=== PATIENT | male | born 2005 | race Caucasian/White ===

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

== ENCOUNTER 2024-03-12 14:03 | Inpatient (IN) | payer MEDICAID, OTHER ==
--- NOTE | 2024-03-12 15:45 | ED ---
Psych HPI - General Chief Complaint: Psychiatric Symptoms Stated Complaint: Mental Health-Cutting Time Seen by Provider: 03/12/24 15:00 Source: patient, family Mode of arrival: ambulatory - History of Present Illness Initial Comments: Patient is a 18-year-old male with history of mood disorder who presents with complaint that his depression has been flaring and he feels suicidal. He used a kitchen knife to inflict 12 very superficial lacerations/abrasions to the left forearm. MD Complaint: suicidal ideation, feels depressed -: days(s) Associated Psychiatric Symptoms: depression, suicidal ideation History of same: Yes Quality: constant Improves With: none Worsens With: none - Related Data Home Medications Medication Instructions Recorded Confirmed metFORMIN HCL ER [Glucophage XR] 500 mg PO DAILY 03/12/24 03/12/24 Previous Rx's Medication Instructions Recorded [place] Carbonate 300 mg PO DAILY 30 Days cap 07/04/22 [place] Carbon[place] 900 mg PO HS 30 Days cap 07/04/22 Melatonin 5 mg PO HS PRN 30 Days tab 07/04/22 Allergies Allergy/AdvReac Type Severity Reaction Status Date / Time No Known Allergies Allergy Verified 03/12/24 17:13 Review of Systems ROS Statement: Those systems with pertinent positive or pertinent negative responses have been documented in the HPI. ROS Other: All systems not noted in ROS Statement are negative. Constitutional: Denies: fever Respiratory: Denies: cough, dyspnea Cardiovascular: Denies: chest pain, palpitations, syncope Gastrointestinal: Denies: abdominal pain, vomiting, diarrhea Genitourinary: Denies: dysuria, hematuria Musculoskeletal: Denies: back pain Skin: Reports: lesions Neurological: Denies: headache, weakness Psychiatric: Reports: depression, suicidal thoughts. Denies: auditory hallucinations, visual hallucinations, homicidal thoughts Past Medical History Past Medical History: No Reported History History of Any Multi-Drug Resistant Organisms: None Reported Past Surgical History: No Surgical Hx Reported Past Anesthesia/Blood Transfusion Reactions: No Reported Reaction Past Psychological History: ADD/ADHD, Depression Smoking Status: Current some day smoker, Vaper Past Alcohol Use History: Daily, Heavy Past Drug Use History: Prescription Drug Abuse - Past Family History Father Family Medical History: Hypertension General Exam Limitations: no limitations General appearance: alert, in no apparent distress Head exam: Present: atraumatic, normocephalic Eye exam: Present: normal appearance Respiratory exam: Present: normal lung sounds bilaterally. Absent: respiratory distress, wheezes, rales, rhonchi, stridor, accessory muscle use Cardiovascular Exam: Present: regular rate, normal rhythm, normal heart sounds. Absent: systolic murmur, diastolic murmur, rubs, gallop GI/Abdominal exam: Present: soft. Absent: distended, tenderness, guarding, rebound, rigid, mass Extremities exam: Present: other (Multiple abrasions to left forearm) Back exam: Present: normal inspection. Absent: CVA tenderness (R), CVA tenderness (L) Neurological exam: Present: alert. Absent: motor sensory deficit Skin exam: Present: warm, dry, intact, normal color. Absent: rash Course Vital Signs 03/12/24 14:13 Temperature 97.9 F Pulse Rate 59 L Respiratory 18 Rate Blood Pressure 135/69 O2 Sat by Pulse 100 Oximetry Medical Decision Making - Medical Decision Making Was pt. sent in by a medical professional or institution (, PA, STOCK HANDLER, urgent care, hospital, or senior care...) When possible be specific @ -[No] Did you speak to anyone other than the patient for history (EMS, parent, family, police, friend...)? What history was obtained from this source @ -[No] Did you review nursing and triage notes (agree or disagree)? Why? @ -[I reviewed and agree with nursing and triage notes] Were old charts reviewed (outside hosp., previous admission, EMS record, old EKG, old radiological studies, urgent care reports/EKG's, senior care records)? Report findings @ -[No old charts were reviewed] Differential Diagnosis (chest pain, altered mental status, abdominal pain women, abdominal pain men, vaginal bleeding, weakness, fever, dyspnea, syncope, head ache, dizziness, GI bleed, back pain, seizure, CVA, palpatations, mental health, musculoskeletal)? @ -Differential Mental Health Depression, anxiety, bipolar, psychosis, schizophrenia, borderline personality, situational depression, adjustment disorder, behavioral disorder, brain tumor, malingering, substance abuse, encephalopathy, medication reaction, dementia, hypothyroidism, degenerative neurologic disorder, lupus.... This is not meant to be all-inclusive list EKG interpreted by me (3pts min.). @ -[As above] X-rays interpreted by me (1pt min.). @ -[None done] CT interpreted by me (1pt min.). @ -[None done] U/S interpreted by me (1pt. min.). @ -[None done] What testing was considered but not performed or refused? (CT, X-rays, U/S, labs)? Why? @ -[None] What meds were considered but not given or refused? Why? @ -[None] Did you discuss the management of the patient with other professionals (professionals i.e. , PA, STOCK HANDLER, lab, RT, psych nurse, social work supervisor, adolescent coordinator, teacher, v/stol landing signal officer, caser shoe parts)? Give summary @ -[Case discussed with EPS personnel and their treatment recommendation is incorporated Was smoking cessation discussed for >3mins.? @ -[No] Was critical care preformed (if so, how long)? @ -[No] Were there social determinants of health that impacted care today? How? (Homelessness, low income, unemployed, alcoholism, drug addiction, transportation, low edu. Level, literacy, decrease access to med. care, alf, rehab)? @ -[No] Was there de-escalation of care discussed even if they declined (Discuss DNR or withdrawal of care, Hospice)? DNR status @ -[No] What co-morbidities impacted this encounter? (DM, HTN, Smoking, COPD, CAD, Cancer, CVA, ARF, Chemo, Hep., AIDS, mental health diagnosis, sleep apnea, morbid obesity)? @ -[None] Was patient admitted / discharged? Hospital course, mention meds given and route, prescriptions, significant lab abnormalities, going to OR and other pertinent info. @ -[Patient is seen and evaluated. He is cleared for EPS evaluation. They saw the patient and after discussion with psychiatrist will admit Undiagnosed new problem with uncertain prognosis? @ -[No] Drug Therapy requiring intensive monitoring for toxicity (Heparin, Nitro, Insulin, Cardizem)? @ -[No] Were any procedures done? @ -[No] Diagnosis/symptom? @ -Acute suicidal ideation Acute on chronic mood disorder Acute, or Chronic, or Acute on Chronic? @ -[default] Uncomplicated (without systemic symptoms) or Complicated (systemic symptoms)? @ -[uncomplicated Side effects of treatment? @ -[No] Exacerbation, Progression, or Severe Exacerbation? @ -[No] Poses a threat to life or bodily function? How? (Chest pain, USA, IA, pneumonia, PE, COPD, DKA, ARF, appy, cholecystitis, CVA, Diverticulitis, Homicidal, Suicidal, threat to staff... and all critical care pts) @ -[With suicidal ideation there is risk of progression to suicide attempt/completion - Lab Data Lab Results 03/12/24 03/12/24 Range/Units 16:35 16:53 Urine Opiates Screen Not Detected (NotDetected) Ur Oxycodone Screen Not Detected (NotDetected) Urine Methadone Screen Not Detected (NotDetected) Ur Barbiturates Screen Not Detected (NotDetected) U Tricyclic Antidepress Not Detected (NotDetected) Ur Phencyclidine Scrn Not Detected (NotDetected) Ur Amphetamines Screen Not Detected (NotDetected) U Methamphetamines Scrn Not Detected (NotDetected) U Benzodiazepines Scrn Not Detected (NotDetected) Urine Cocaine Screen Not Detected (NotDetected) U Marijuana (THC) Screen Not Detected (NotDetected) SARS-CoV-2 (PCR) Not Detected (Not Detectd) - EKG Data -: EKG Interpreted by Pr EKG shows normal: sinus rhythm, axis (Borderline right axis), intervals (NC interval 138 ms, normal QTc 369 ms, normal. QRS duration 120 ms, borderline.), QRS complexes (Intraventricular conduction delay), ST-T waves (Normal) Rate: bradycardia (Rate 49 bpm) Disposition Clinical Impression: Suicidal ideation, Mood disorder Disposition: ADMITTED IP TO THIS [facility] Condition: Fair Is patient prescribed a controlled substance at d/c from ED?: No Referrals: Tre Anderson MD [Primary Care Provider] - 1-2 days
[2024-03-12 17:25] LABS: Amphetamine Screen,Urine Not Detected (NotDetected); Barbiturate Screen,Urine Not Detected (NotDetected); Benzodiazepines Screen,Urine Not Detected (NotDetected); Cocaine Screen,Urine Not Detected (NotDetected); Methadone Screen, Urine Not Detected (NotDetected); Opiate Screen,Urine Not Detected (NotDetected); Oxycodone Screen, Urine Not Detected (NotDetected); Phencyclidine Screen,Urine Not Detected (NotDetected); Tricyclic Antidepressant,Urine Not Detected (NotDetected); Urn Cannabinoid Scrn Not Detected (NotDetected)
[2024-03-12 19:02] LABS: Basophils % (A) 0 %; Eosinophils # (A) 0.1 k/uL (0-0.7); Eosinophils % (A) 1 %; Lymphocytes # (A) 2.2 k/uL (1.0-4.8); Lymphocytes % (A) 24 %; MCH 28.9 pg (25.0-35.0); MCHC 35.6 g/dL (31.0-37.0); MCV 81.1 fL (80.0-100.0); Mean Platelet Volume 7.7; Monocytes # (A) 0.8 k/uL (0-1.0); Monocytes % (A) 8 %; Neutrophils # (A) 6.1 k/uL (1.3-7.7); Neutrophils % (A) 65 %; Platelet Count 260 k/uL (150-450); RBC 5.54 m/uL (4.30-5.90); WBC 9.4 k/uL (4.0-11.0)
[2024-03-12 19:43] LABS: African American GFR (CKD) >90 (>60 ml/min/1.73 sqM); Anion Gap 9 mmol/L; Blood Urea Nitrogen 9 mg/dL (9-20); Calcium 9.8 mg/dL (8.4-10.2); Carbon Dioxide 26 mmol/L (22-30); Chloride 105 mmol/L (98-107); Glucose 64 mg/dL (74-99); Lithium <0.2 mmol/L; Non-African American GFR(CKD) >90 (>60 ml/min/1.73 sqM); Potassium 4.4 mmol/L (3.5-5.1); Sodium 140 mmol/L (137-145)
[2024-03-12] MEDS ORDERED: MAGNESIUM HYDROXIDE 2,400 MG/30 ML CUP PO PRN (21:22)
[2024-03-12] MEDS ORDERED: ACETAMINOPHEN TAB 325 MG TAB PO PRN (21:22)
[2024-03-12] MEDS ORDERED: LORazepam 2 MG/ML INJ IM PRN (21:22)
[2024-03-12 21:54] LABS: Appearance,Urine Clear (Clear); Bilirubin,Urine Negative (Negative); Blood,Urine Negative (Negative); Color,Urine Yellow; Glucose,Urine (UA) Negative (Negative); Ketones,Urine Negative (Negative); Leukocyte Esterase,Urine Negative (Negative); Nitrite,Urine Negative (Negative); Protein,Urine Trace (Negative)
[2024-03-12] MEDS: IBUPROFEN 600 MG TAB PO PRN (22:57)
[2024-03-12] MEDS: MELATONIN 5 MG TABLET PO PRN (22:57)
[2024-03-12] MEDS: traZODone HCL 50 MG TAB PO PRN (22:57)
--- NOTE | 2024-03-13 04:15 | P.CONS ---
History of Present Illness - Reason for Consult Consult date: 03/13/24 - History of Present Illness The patient is a 18-year-old male with a PMH of ADHD and depression as well as tobacco and marijuana abuse who presented to the emergency room with complaints of depression and suicidal ideation. The patient was admitted to the mental health unit where he was seen and evaluated. The patient reports that he has been suffering with several poor social situations and that he had been having t houghts of self-harm. He denied any physical complaints at the time of interview. Denied experiencing chest discomfort, shortness breath, fever, chills, cough, nausea, vomiting, abdominal pain, diarrhea. Does report recreational marijuana and tobacco use along with occasional social alcohol use. Denies any additional illicit substance use Review of systems: Pertinent positives and negatives as discussed in HPI, a complete review of systems was performed and all other systems are negative. Physical examination: General: non toxic, no distress, appears at stated age, normal weight Derm: no unusual rashes/lesions, no unusual ecchymoses, warm, dry Head: atraumatic, normocephalic, symmetric Eyes: EOMI, no lid lag, anicteric sclera ENT: Nose and ears atraumatic, no thrush, no pharyngeal erythema Neck: trachea midline, supple Mouth: no lip lesion, mucus membranes moist Cardiovascular: S1S2 reg, no murmur, no edema Lungs: CTA bilateral, no rhonchi, no rales , no accessory muscle use Abdominal: soft, nontender to palpation, no guarding Ext: no gross muscle atrophy, no contractures, Neuro: No gross focal neuro deficits noted Psych: Alert, oriented, appropriate affect Assessment: Marijuana abuse Depression with suicidal ideation Imaging: None performed Data Review: Reviewed with WBC count 9.4, hemoglobin 16, sodium 140, potassium 4.4, glucose 64, with urine toxicology negative Plan: Advised on the importance of cessation Defer management of depression and suicidal ideation to the primary psychiatry service Thank you for allowing us to participate in the care of this patient. We will follow peripherally. Do not hesitate to contact us with questions. Someone can be reached from the [facility] hospitalist group at all hours of the day at [phone]. Past Medical History Past Medical History: No Reported History History of Any Multi-Drug Resistant Organisms: None Reported Past Surgical History: No Surgical Hx Reported Past Anesthesia/Blood Transfusion Reactions: No Reported Reaction Past Psychological History: ADD/ADHD, Bipolar, Depression, Schizoaffective Disorder Smoking Status: Current some day smoker, Vaper Past Alcohol Use History: Daily, Heavy Past Drug Use History: Prescription Drug Abuse - Past Family History Father Family Medical History: Hypertension Medications and Allergies Home Medications Medication Instructions Recorded Confirmed Type March Arb Carbonate 300 mg PO DAILY 30 Days cap 07/04/22 03/12/24 Rx March Arb Carbonate 900 mg PO HS 30 Days cap 07/04/22 03/12/24 Rx Melatonin 5 mg PO HS PRN 30 Days tab 07/04/22 03/12/24 Rx metFORMIN HCL ER [Glucophage XR] 500 mg PO DAILY 03/12/24 03/12/24 History Allergies Allergy/AdvReac Type Severity Reaction Status Date / Time No Known Allergies Allergy Verified 03/12/24 21:48 Physical Exam Vitals: Vital Signs Temp Pulse Pulse Resp BP BP Pulse Ox 03/13/24 02:55 97.6 F 80 16 107/63 96 03/12/24 22:24 97.4 F L 56 L 14 129/67 98 03/12/24 21:19 60 18 128/70 99 03/12/24 14:13 97.9 F 59 L 18 135/69 100 Intake and Output 03/12/24 03/12/24 03/13/24 14:59 22:59 06:59 Other: Weight 84.822 kg 78.557 kg Results CBC & Chem 7: 03/12/24 18:52 03/12/24 18:52 Labs: Abnormal Lab Results - Last 24 Hours (Table) 03/12/24 03/12/24 Range/Units 16:35 18:52 Glucose 64 L (74-99) mg/dL Urine Protein Trace H (Negative)
[2024-03-13] MEDS ORDERED: MAG HYDROX/AL HYDROX/SIMETH 355 ML BOTTLE PO PRN (08:00)
[2024-03-13] MEDS: NICOTINE 14MG/24HR PATCH TRANSDERM SCH (09:16)
[2024-03-13] MEDS: metFORMIN 500 MG TAB PO SCH (09:17)
[2024-03-13 09:37] LABS: ALT 17 U/L (4-49); AST 21 U/L (17-59); Albumin 4.5 g/dL (3.5-5.0); Alkaline Phosphatase 87 U/L (38-126); Bilirubin, Delta 0.2 mg/dL (0.0-0.2); Bilirubin,Unconjugated 0.6 mg/dL (0.0-1.1); Total Bilirubin 0.8 mg/dL (0.2-1.3); Total Protein 7.5 g/dL (6.3-8.2)
[2024-03-13 12:47] LABS: Chol/HDL Ratio 2.88 Ratio; LDL Cholesterol,Calculated 52.6 mg/dL (0.0-131.0); VLDL Calculation 17.26 mg/dL (5.00-40.00)
[2024-03-13] MEDS: LORazepam 1 MG TAB PO PRN (16:21)
[2024-03-13] MEDS: haloperidoL 5 MG TAB PO PRN (16:52)
[2024-03-13] MEDS: diphenhydrAMINE 50 MG/ML 1 ML VIAL IM STA (17:06)
[2024-03-13] MEDS: HALOPERIDOL LACTATE 5 MG/ML 1 ML VIAL IM PRN (17:06)
[2024-03-13] MEDS ORDERED: cloZAPine 25 MG TAB PO SCH (21:00)
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
[2024-03-13] MEDS: LITHIUM CARBONATE 300 MG CAP PO SCH (21:36)
[2024-03-13] MEDS: cloZAPine 25 MG TAB PO SCH (21:36)
[2024-03-13 22:33] LABS: T4, Free (Free Thyroxine) 1.26 ng/dL (0.78-2.19)
--- NOTE | 2024-03-14 19:48 | P.PN ---
Progress Note - Text Progress Note Date: 03/14/24 Interval history: [place] was seen socializing with [place] [facility] [place] directable and agreeable to speak with selling underwriter. He appears calmer today and has not required any PRN medications for agitation so far today. He continues to report depressed mood, reports suicidal ideations with plan desire to use "pills, guns, knives" to end his life. He also endorses vague homicidal ideations against unnamed individuals in [place] "people outside of here". He claims auditory hallucinations telling him to "mutilate", but does not appear to be overtly attending to internal stimuli. Denies any visual hallucinations. Patient denies any side effects from the medications and has been compliant with meds. Mental status exam: General Appearance: Patient appears to be stated age, long shaggy hair with blond highlights, pierced ears with cross earrings, nail sudanese on fingernails, average hygiene and grooming. Behavior: Patient is calmer without any agitated behavior. Fair eye contact. Speech: Patient's speech is fluent and non-pressured. Mood/Affect: Patient reports their mood is depressed, affect is congruent and constricted. Suicidality/Homicidality: Patient endorses vague homicidal ideations against unnamed individuals in [place] "people outside of here". Patient endorses suicidal ideation, intent or plan. Perceptions: Patient denies any visual hallucinations and reports auditory hallucinations. Though content/process: There is no evidence of any delusional thought content and thought process is ruminative. Memory and concentration: AOX3, grossly intact for the purposes of this session. Judgment and insight: poor/impaired Assessment/Plan: Continue with current diagnosis. Patient continues to meet criteria for inpatient psychiatric admission for symptom stabilization and safety. Increase Clozapine to 25 mg QAM/50 mg QHS for today and 50 mg BID starting tomorrow for bipolar mood stabilization/psychosis. Continue [place] 300 mg QHS for suicidal ideations. Labs reviewed: TSH low, free T4 normal. Recommend outpatient follow-up for further thyroid work-up. Monitor for medication compliance and for any psychotropic medication side effects. Will continue to monitor ongoing response to treatment. Encouraged participation in milieu.
[2024-03-14] MEDS: cloZAPine 25 MG TAB PO SCH (22:07)
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
[2024-03-15] MEDS: cloZAPine 25 MG TAB PO SCH (22:22)
--- NOTE | 2024-03-16 12:38 | P.PN ---
Progress Note - Text Progress Note Date: 03/16/24 Interval History: Patient was seen in his room and woke briefly from a nap and was directable and agreeable to speak with public relations writer. [He reports feeling "better" today and notes that his mood is about a 5 out of 10 with 10 being optimal. He describes ongoing grief secondary to the losses of several loved ones recently and finds it hard to talk about this grief. He endorses having ongoing suicidal thoughts but denies homicidal thoughts stating "not today". He denies intent or plan for harming himself but is struggling with low mood. He denies homicidal intent or plan. Patient denies any auditory, visual hallucinations and denies any paranoia or delusions. Patient denies any side effects from the medications and has been compliant with meds. We discussed yesterday's increase on the clozapine and plans to continue to monitor how this impacts his symptoms. Mental Status Exam: General Appearance: Patient appears to be stated age is sleepy, directable, and cooperative. Behavior: Patient is calmly lying down without any agitated behavior. Speech: Patient's speech is fluent and nonpressured. Normal tone, low volume. Mood/Affect: Mood is "better," affect is congruent and constricted overall. Suicidality/Homicidality: Patient denies having suicidal or homicidal ideation intent or plan. He does endorse suicidal ideation. No intent or plan to harm himself. Perceptions: Patient denies any visual hallucinations and denies any auditory hallucinations Though content/process: There is no evidence of any delusional thought content and thought process is linear and goal-directed. Though some paucity of thought, possibly secondary to sleepiness. Memory and concentration: AOX3, grossly intact for the purposes of this session Judgment and insight: Poor/Limited Assessment Barrett Garg is a 18 year old man with a history of bipolar I disorder, presently depressed with psychotic features, tobacco use disorder, and alcohol use disorder. He was also found to have low TSH during this admission. He continues to experience low mood secondary to grief and several losses, thou gh does feel he's doing a bit better as compared to admission. His clozapine dose was most recently increased yesterday. Plan: -Patient continues to meet criteria for inpatient psychiatric admission for symptom stabilization and safety. Patient has signed adult voluntary form and medication consent and was placed in patient's chart. -Medications: - Continue Clozapine 75 mg BID (last increased on 03/15/24) - Continue [place] 300 mg at bedtime for suicidal ideation (started this admission) - Continue Trazodone 50 mg at bedtime for sleep PRN - Continue melatonin 5 mg at bedtime for sleep PRN - Labs: Continue weekly CBC w/Diff for ANC monitoring (last on 03/12/24); will need outpatient follow-up of low TSH found on this admission -When necessary Ativan and Haldol for agitation/aggression. -NRT - nicotine patch available -SW on board for discharge planning. Encouraged the patient to participate in milieu.
[2024-03-17 12:00] LABS: Basophils % (A) 0 %; Eosinophils % (A) 0 %; HCT 43.6 % (39.0-53.0); HGB 15.8 gm/dL (13.0-17.5); Lymphocytes # (A) 2.6 k/uL (1.0-4.8); Lymphocytes % (A) 26 %; MCH 29.4 pg (25.0-35.0); MCHC 36.1 g/dL (31.0-37.0); MCV 81.3 fL (80.0-100.0); Mean Platelet Volume 7.8; Monocytes # (A) 1.1 k/uL (0-1.0); Monocytes % (A) 12 %; Neutrophils # (A) 5.9 k/uL (1.3-7.7); Neutrophils % (A) 60 %; Platelet Count 272 k/uL (150-450); RBC 5.36 m/uL (4.30-5.90); RDW 12.9 % (11.5-15.5); WBC 9.9 k/uL (4.0-11.0)
--- NOTE | 2024-03-17 14:31 | P.PN ---
Progress Note - Text Progress Note Date: 03/17/24 Interval History: Patient was seen in the [place] and was agreeable to speak with property underwriter in the off ice. He reports "I feel a lot better". Notices that his outlook has improved and he specifically described wanting to be a good role model for his little brother because he knows he looks up to him. 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 At this time patient denies having specific homicidal ideation but does feel non-specific thoughts of hurting people, particularly those from his hometown who call him names. He reports experiencing chronic suicidal ideation, rated today as a 7 out of 10 with 10 being the most intense. He denies intent or plan to act on these thoughts and again referenced wanting to be here for his brother. He denies experiencing visual hallucinations but does have persistent auditory hallucinations. He describes these as voices that are familiar to him that are generally mumbling and may say "run, hide". Much of the time he is not able to understand the mumbles but at times he can. Patient denies any side effects from the medications and has been compliant with meds. Mental Status Exam: General Appearance: Patient appears to be stated age is alert, directable, and cooperative. Hair in ponytail with sides cut low. Wearing cross earrings. Chipped nail faroese. Behavior: Patient is calmly seated without any agitated behavior. Intermittent eye contact. Speech: Patient's speech is fluent and nonpressured. Mood/Affect: Mood is "a lot better", affect is congruent and notably more euthymic than yesterday. Suicidality/Homicidality: Patient denies having any suicidal or homicidal ideation intent or plan. Perceptions: Patient denies any visual hallucinations and denies any auditory hallucinations Though content/process: There is no evidence of any delusional thought content and thought process is linear and goal-directed. Memory and concentration: AOX3, grossly intact for the purposes of this session Judgment and insight: Improving Assessment Barrett CabralblaynephuMarcelleMo is a 18 year old man with a history of bipolar I disorder, presently depressed with psychotic features, tobacco use disorder, and alcohol use disorder. He was also found to have low TSH during this admission. He endorses ongoing chronic suicidal ideation however his general outlook has improved as compared to yesterday. He endorses willingness to engage in care on an outpatient basis and return to his local [facility] for therapy. We discussed a plan to increase his clozapine dose to 100 mg twice a day being mindful of potential for sedation and the challenges he had with this before which contributed to nonadherence. Encouraged him to be aware of his degree of tiredness and to communicate about things that he is noticing. Plan: -Patient continues to meet criteria for inpatient psychiatric admission for symptom stabilization and safety. Patient has signed adult voluntary form and medication consent and was placed in patient's chart. -Medications: - Increase Clozapine to 100 mg BID (will get 75mg AM/100 mg HS today, then BID dosing will commence tomorrow) - Continue [employer] 300 mg at bedtime for suicidal ideation (started this admission) - Continue Trazodone 50 mg at bedtime for sleep PRN - Continue melatonin 5 mg at bedtime for sleep PRN - Labs: Continue weekly CBC w/Diff for ANC monitoring (last on 03/12/24); will need outpatient follow-up of low TSH found on this admission -When necessary Ativan and Haldol for agitation/aggression. -NRT - nicotine patch available -SW on board for discharge planning. Encouraged the patient to participate in milieu.
[2024-03-17] MEDS: cloZAPine 100 MG TAB PO SCH (22:07)
--- NOTE | 2024-03-18 10:59 | P.PN ---
Progress Note - Text Progress Note Date: 03/18/24 Interval History: Patient was seen while lying down and woke easily after calling his name. When asked about how his night went he gave a thumbs up and said that his mood today is "good" he has been sleeping okay denies having any worries and feels that he continues to be in a better place than he was at the time of admission. He asked "when can I go home"? Explored briefly the progress that he is made during this hospitalization and his sense that he is feeling stable. Discussed that he will need to engage with [facility] on outpatient basis in order to continue care which he remains amenable to. At this time patient denies any suicidal or homical ideations, intent or plan. Patient denies any visual hallucinations and denies any paranoia or delusions. He does continue to experience auditory hallucinations that are frequently a mumble but occasionally he hears them saying things like "run" or "hide". These voices are not distressing to him nor do they say mean or unpleasant things. Patient denies any side effects from the medications and has been compliant with meds. Discussed the importance of monitoring his bowel habits with clozapine given risk of severe constipation. He's been going regularly during this admission. Mental Status Exam: General Appearance: Patient appears to be stated age is alert, directable, and cooperative. Hair in ponytail with sides cut low. Wearing cross earrings. Chipped nail lithuanian. Behavior: Patient is calmly lying down without any agitated behavior. Brief eye contact. Speech: Patient's speech is fluent and nonpressured. Mood/Affect: Mood is "good", affect is congruent and less distressed than prior, appears calm and euthymic. Suicidality/Homicidality: Patient denies having any suicidal or homicidal ideation intent or plan. Perceptions: Patient denies any visual hallucinations and denies any auditory hallucinations Though content/process: There is no evidence of any delusional thought content and thought process is linear and goal-directed. Memory and concentration: AOX3, grossly intact for the purposes of this session Judgment and insight: Improving Assessment Barrett CabralblaynephuLazaro is a 18 year old man with a history of bipolar I disorder, presently depressed with psychotic features, tobacco use disorder, and alcohol use disorder. He was also found to have low TSH during this admission. He has previously endorsed chronic suicidal ideations though today denies having suicidal ideation intent or plan. He expressed future orientation and his desire to return home. A significant protective factor for him is his younger brother who sees patient as a role model. He again endorsed willingness to engage in care on an outpatient basis and return to his local [facility] for therapy. Plan: -Patient continues to meet criteria for inpatient psychiatric admission for symptom stabilization and safety. Patient has signed adult voluntary form and medication consent and was placed in patient's chart. -Medications: - Continue Clozapine 100 mg BID (first dose of 100 mg at bedtime was on 03/17/24) - Continue [place] 300 mg at bedtime for suicidal ideation (started this admission) - Continue Trazodone 50 mg at bedtime for sleep PRN - Continue melatonin 5 mg at bedtime for sleep PRN - Labs: Continue weekly CBC w/Diff for ANC monitoring (last on 03/12/24); will need outpatient follow-up of low TSH found on this admission -When necessary Ativan and Haldol for agitation/aggression. -NRT - nicotine patch available -SW on board for discharge planning. Encouraged the patient to participate in milieu. May be ready for discharge early next week.
--- NOTE | 2024-03-19 12:36 | P.PN ---
Progress Note - Text Progress Note Date: 03/19/24 Interval History: Patient was seen while lying down and woke easily and agreeable to speak with the job specification writer in the office. He states that he is a bit better today. He claims to be sleeping well at night, and his appetite is good. He is attending a few groups. He does continue to experience auditory hallucinations that are frequently having conversations with him, not negative in nature. Patient does not endorse homicidal or suicidal ideation. Patient denies any side effects from the medications and has been compliant with meds. Mental Status Exam: General Appearance: Patient appears to be stated age is alert, directable, and cooperative. Hair in ponytail with sides cut low. Wearing cross earrings. Chipped nail kittitian. Behavior: Patient is calmly seated without any agitated behavior. good eye contact. Speech: Patient's speech is fluent and nonpressured. Mood/Affect: Mood is "good", affect is congruent appears calm Suicidality/Homicidality: Patient denies having any suicidal or homicidal ideation intent or plan. Perceptions: Patient denies any visual hallucinations and endorses auditory hallucinations Though content/process: There is no evidence of any delusional thought content and thought process is linear and goal-directed. Memory and concentration: AOX3, grossly intact for the purposes of this session Judgment and insight: Improving Assessment schizoaffective disorder, bipolar type Plan: -Patient continues to meet criteria for inpatient psychiatric admission for symptom stabilization and safety. Patient has signed adult voluntary form and medication consent and was placed in patient's chart. -Medications: - Change Clozapine 150 mg qhs, 50mg daily for psychosis due to oversedation during the day. will continue to monitor. - Continue [place] 300 mg at bedtime for suicidal ideation (started this admission) - Continue Trazodone 50 mg at bedtime for sleep PRN - Continue melatonin 5 mg at bedtime for sleep PRN - Labs: Continue weekly CBC w/Diff for ANC monitoring (last on 03/12/24); will need outpatient follow-up of low TSH found on this admission -When necessary Ativan and Haldol for agitation/aggression. -NRT - nicotine patch available -SW on board for discharge planning. Encouraged the patient to participate in milieu. Likely discharge Friday, if patient continues to improve.
[2024-03-19] MEDS: cloZAPine 100 MG TAB PO SCH (23:00)
[2024-03-20] MEDS: cloZAPine 25 MG TAB PO SCH (09:08)
--- NOTE | 2024-03-20 10:37 | P.PN ---
Subjective Progress Note Date: 03/20/24 Principal diagnosis: Assessment schizoaffective disorder, bipolar type atient Name: Barrett Rolon Date of : [birth year] Patient Status: Inpatient Attending Provider: Adrián Taylor Date: 03/20/24 Initialization Date: 03/19/24 08:41 Subjective data: Patient was seen while lying down and woke easily and agreeable to speak with the science writer . Patient reports that he is doing well and is ready to go home he reports that he was going through depression where he wanted to cut his wrist and wanted to kill himself He states that he did run out of his medications He admits that he had had problems with alcohol and taking opiate pills he claims to be sleeping well at night, and his appetite is good. He is attending a few groups. He does continue to experience auditory hallucinations that are frequently having conversations with him, not negative in nature. Patient does not endorse homicidal or suicidal ideation. Patient denies any side effects from the medications and has been compliant with meds. Mental Status Exam: Remains unchanged General Appearance: Patient appears to be stated age is alert, directable, and cooperative. Hair in ponytail with sides cut low. Wearing cross earrings. Chipped nail fijian. Behavior: Patient is calmly seated without any agitated behavior. good eye co ntact. Speech: Patient's speech is fluent and nonpressured. Mood/Affect: Mood is "good", affect is congruent appears calm Suicidality/Homicidality: Patient denies having any suicidal or homicidal ideation intent or plan. Perceptions: Patient denies any visual hallucinations and endorses auditory hallucinations Though content/process: There is no evidence of any delusional thought content and thought process is linear and goal-directed. Memory and concentration: AOX3, grossly intact for the purposes of this session Judgment and insight: Improving Assessment schizoaffective disorder, bipolar type Plan: Agree with the current treatment plan -Patient continues to meet criteria for inpatient psychiatric admission for symptom stabilization and safety. Patient has signed adult voluntary form and medication consent and was placed in patient's chart. -Medications: - Clozapine 150 mg qhs, 50mg daily for psychosis due to oversedation during the day. will continue to monitor. - Continue [place] 300 mg at bedtime for suicidal ideation (started this admission) - Continue Trazodone 50 mg at bedtime for sleep PRN - Continue melatonin 5 mg at bedtime for sleep PRn -When necessary Ativan and Haldol for agitation/aggression. -NRT - nicotine patch available - on board for discharge planning. Encouraged the patient to participate in milieu. Likely discharge Friday, if patient continues to improve. The patient has been hospitalized on the unit for further evaluation and treat ment Therapy will be focused on providing supportive care and improving his coping abilities with a multimodal treatment Patient will also participate on the [facility] activities Individual milieu group OT RT PT and pharmacotherapy Patient also will be referred for substance use program including psychosocial support system like AA and NA for alcohol and substance use disorders Suicide risk assessment: 1 emotional and physical pain: low 2 withdrawal/inability to talk about feelings/lack of participation: low 3 current stress/losses/difficult life situation: low 4 hopelessness/inability to think of the future that could be bright: low 5 history of self harm, especially in the hospital/healthcare facilities: low 6 access to firearms: denied 7 current depressive hypomanic or manic episodes: Psychosis 8 current thoughts of suicide, intent or plan: low protective factors: has family support forward thinking absence of depression no major illegal activities and estimated suicide risk : low "This dictation was prepared using [employer] voice recognition software. As a result, errors may occur. When identified, these errors have been corrected. While every attempt is made to correct errors during dictation, errors may still exist." I have spent more than 25 minutes with patient doing preparation for encounter, history, physical exam, interpretation of results, reviewing images myself, and coordination of care. Please see assessment and plan above regarding details. Percy Shirley MD Objective - Vital Signs Vital signs: Vital Signs Temp 97.9 F 03/20/24 06:15 Pulse 71 03/20/24 06:15 Resp 20 03/20/24 06:15 BP 105/66 03/20/24 06:15 Pulse Ox 98 03/20/24 06:15 FiO2 - Labs CBC & Chem 7: 03/17/24 11:20 03/12/24 18:52
[2024-03-21 07:14] VITALS: RESP 14
--- NOTE | 2024-03-21 08:57 | P.PN ---
Subjective Progress Note Date: 03/21/24 Principal diagnosis: Assessment schizoaffective disorder, bipolar type atient Name: Barrett Rolon Date of : [birth year] Patient Status: Inpatient Attending Provider: Adrián Taylor Date: 03/21/24 Initialization Date: 03/19/24 08:41 Subjective data: Patient was seen chart was reviewed and case discussed with nursing staff Patient denies any problems or issues he states that he slept well and that he i s not experiencing any auditory or visual hallucinations He denies any thoughts of wanting to harm himself or others He denies that he is having any issues or concerns and states that he needs to go home Insight into his problem remains poor Mental Status Exam: Remains unchanged General Appearance: Patient appears to be stated age is alert, directable, and cooperative. Hair in ponytail with sides cut low. Wearing cross earrings. Chipped nail portuguese. Behavior: Patient is calmly seated without any agitated behavior. good eye contact. Speech: Patient's speech is fluent and nonpressured. Mood/Affect: Mood is "good", affect is congruent appears calm Suicidality/Homicidality: Patient denies having any suicidal or homicidal ideation intent or plan. Perceptions: Patient denies any visual hallucinations and endorses auditory hallucinations Though content/process: There is no evidence of any delusional thought content and thought process is linear and goal-directed. Memory and concentration: AOX3, grossly intact for the purposes of this session Judgment and insight: Improving Assessment schizoaffective disorder, bipolar type Plan: Agree with the current treatment plan -Patient continues to meet criteria for inpatient psychiatric admission for symptom stabilization and safety. Patient has signed adult voluntary form and medication consent and was placed in patient's chart. -Medications: - Clozapine 150 mg qhs, 50mg daily for psychosis due to oversedation during the day. will continue to monitor. - Continue [place] 300 mg at bedtime for suicidal ideation (started this admission) - Continue Trazodone 50 mg at bedtime for sleep PRN - Continue melatonin 5 mg at bedtime for sleep PRn -When necessary Ativan and Haldol for agitation/aggression. -NRT - nicotine patch available -SW on board for discharge planning. Encouraged the patient to participate in milieu. Likely discharge [place], if patient continues to improve. The patient has been hospitalized on the unit for further evaluation and treatment Therapy will be focused on providing supportive care and improving his coping abilities with a multimodal treatment Patient will also participate on the [facility] activities Individual milieu group OT RT PT and pharmacotherapy Patient also will be referred for substance use program including psychosocial support system like AA and NA for alcohol and substance use disorders Suicide risk assessment: 1 emotional and physical pain: low 2 withdrawal/inability to talk about feelings/lack of participation: low 3 current stress/losses/difficult life situation: low 4 hopelessness/inability to think of the future that could be bright: low 5 history of self harm, especially in the hospital/healthcare facilities: low 6 access to firearms: denied 7 current depressive hypomanic or manic episodes: Psychosis 8 current thoughts of suicide, intent or plan: low protective factors: has family support forward thinking absence of depression no major illegal activities and estimated suicide risk : low "This dictation was prepared using [employer] voice recognition software. As a result, errors may occur. When identified, these errors have been corrected. While every attempt is made to correct errors during dictation, errors may still exist." I have spent more than 25 minutes with patient doing preparation for encounter, history, physical exam, interpretation of results, reviewing images myself, and coordination of care. Please see assessment and plan above regarding details. Percy Shirley MD Objective - Vital Signs Vital signs: Vital Signs Temp 97.6 F 03/21/24 06:33 Pulse 72 03/21/24 06:33 Resp 14 03/21/24 06:33 BP 100/63 03/21/24 06:33 Pulse Ox 98 03/21/24 06:33 FiO2 - Labs CBC & Chem 7: 03/17/24 11:20 03/12/24 18:52
[2024-03-22 07:17] VITALS: BP 102/65; PULSE 67; TEMP 97.5
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
== END 2024-03-22 15:00 | disposition home or self-care (01) | DRG 750 ==
LOC: EC 14:03 → 3MHU 21:06
PROVIDERS: ADMIT Psychiatry & Neurology Psychiatry; ATTEND Psychiatry & Neurology Psychiatry
DX: F25.0 Schizoaffective disorder, bipolar type (principal); F12.10 Cannabis abuse, uncomplicated; F17.200 Nicotine dependence, unspecified, uncomplicated; F32.3 Major depressive disorder, single episode, severe with psychotic features; F90.9 Attention-deficit hyperactivity disorder, unspecified type; G47.00 Insomnia, unspecified; G47.10 Hypersomnia, unspecified; R45.850 Homicidal ideations; R45.851 Suicidal ideations; S50.812A Abrasion of left forearm, initial encounter; S51.812A Laceration without foreign body of left forearm, initial encounter; Z79.84 Long term (current) use of oral hypoglycemic drugs; Z79.899 Other long term (current) drug therapy; Z81.8 Family history of other mental and behavioral disorders; Z91.148 Patient's other noncompliance with medication regimen for other reason; Z91.52 Personal history of nonsuicidal self-harm; Z11.52 Encounter for screening for COVID-19
CPT/HCPCS: 36415; 80048; 80061; 80076; 80178; 80306; 81003; 82075; 83036; 84439; 84443; 85025; 87635; 93005; 96372; 99285

== ENCOUNTER 2024-04-02 14:58 | Inpatient (IN) | payer MEDICAID, OTHER ==
[2024-04-02 16:05] LABS: Amphetamine Screen,Urine Not Detected (NotDetected); Barbiturate Screen,Urine Not Detected (NotDetected); Benzodiazepines Screen,Urine Not Detected (NotDetected); Cocaine Screen,Urine Not Detected (NotDetected); Methadone Screen, Urine Not Detected (NotDetected); Opiate Screen,Urine Not Detected (NotDetected); Oxycodone Screen, Urine Not Detected (NotDetected); Phencyclidine Screen,Urine Not Detected (NotDetected); Tricyclic Antidepressant,Urine Detected (NotDetected); Urn Cannabinoid Scrn Not Detected (NotDetected)
[2024-04-02] MEDS ORDERED: MAGNESIUM HYDROXIDE 2,400 MG/30 ML CUP PO PRN (18:19)
[2024-04-02] MEDS ORDERED: ACETAMINOPHEN TAB 325 MG TAB PO PRN (18:19)
[2024-04-02] MEDS ORDERED: IBUPROFEN 600 MG TAB PO PRN (18:19)
[2024-04-02] MEDS ORDERED: LORazepam 1 MG TAB PO PRN ×2 (18:19)
[2024-04-02] MEDS ORDERED: LORazepam 2 MG/ML INJ IM PRN (18:24)
--- NOTE | 2024-04-02 19:22 | ED ---
General Adult HPI - General Chief complaint: Psychiatric Symptoms Stated complaint: mental health Time Seen by Provider: 04/02/24 15:10 Source: patient, RN notes reviewed, old records reviewed Mode of arrival: EMS Limitations: no limitations - History of Present Illness Initial comments: Patient is a 18-year-old male who presents emergency department after being transferred from [facility] for suicidal and homicidal ideations. States has been ongoing since previous visit. States he has not been on his medications and compliant but this seems to be unaffected. Presents for further evaluation at this time. Denies any medications. Denies any other acute complaints. Was sent from [facility] for EPS evaluation. - Related Data Previous Rx's Medication Instructions Recorded [employer] Carbonate 300 mg PO HS 30 Days #30 cap 03/22/24 Melatonin 5 mg PO HS PRN 30 Days #30 tab 03/22/24 Nicotine 14Mg/24Hr Patch [Habitrol] 1 patch TRANSDERM DAILY 14 Days 03/22/24 #14 patch cloZAPine [Clozaril] 50 mg PO DAILY 7 Days #7 tab 03/22/24 cloZAPine [Clozaril] 100 mg PO HS 7 Days #7 tab 03/22/24 metFORMIN HCL 500 mg PO BID 30 Days #60 tablet 03/22/24 traZODone HCL [Desyrel] 50 mg PO HS PRN 30 Days #30 tab 03/22/24 Allergies Allergy/AdvReac Type Severity Reaction Status Date / Time No Known Allergies Allergy Verified 04/02/24 16:34 Review of Systems ROS Statement: Those systems with pertinent positive or pertinent negative responses have been documented in the HPI. Review of Systems: CONST: Denies fever EYES: Denies blurry vision ENT: Denies nasal congestion C/V: Denies Chest pain RESP: Denies shortness of breath GI: Denies abdominal pain : Denies dysuria SKIN: Denies rash. MSK: Denies joint pain. NEURO: Denies headache ROS Other: All systems not noted in ROS Statement are negative. Past Medical History Past Medical History: No Reported History History of Any Multi-Drug Resistant Organisms: None Reported Past Surgical History: No Surgical Hx Reported Past Anesthesia/Blood Transfusion Reactions: No Reported Reaction Past Psychological History: ADD/ADHD, Bipolar, Depression, Schizoaffective Disorder Smoking Status: Current every day smoker Past Alcohol Use History: Daily, Heavy Past Drug Use History: Prescription Drug Abuse - Past Family History Father Family Medical History: Hypertension General Exam - General Exam Comments Initial Comments: General: Appears in no acute distress. HEAD: Normal with no signs of head trauma. EYES: EOMI. ENT: Hearing grossly intact. RESPIRATORY: No respiratory distress. C/V: Regular rate and rhythm. ABD: Abdomen is nondistended. EXT: No obvious deformity. SKIN: No rashes or lesions observed on exposed skin. NEURO: Alert and oriented. Limitations: no limitations Course Vital Signs 04/02/24 04/02/24 14:59 18:55 Temperature 98.2 F 97.5 F L Pulse Rate 111 H Pulse Rate [ 70 Right Sitting] Respiratory 16 18 Rate Blood Pressure 157/89 Blood Pressure 118/68 [Right Arm Sitting] O2 Sat by Pulse 97 Oximetry Medical Decision Making - Medical Decision Making Was pt. sent in by a medical professional or institution (, PA, TATTOO IDENTIFIER, urgent care, hospital, or snf...) When possible be specific @ -No Did you speak to anyone other than the patient for history (EMS, parent, family, police, friend...)? What history was obtained from this source @ -No Did you review nursing and triage notes (agree or disagree)? Why? @ -I reviewed and agree with nursing and triage notes Were old charts reviewed (outside hosp., previous admission, EMS record, old EKG, old radiological studies, urgent care reports/EKG's, snf records)? Report findings @ -No old charts were reviewed Differential Diagnosis (chest pain, altered mental status, abdominal pain women, abdominal pain men, vaginal bleeding, weakness, fever, dyspnea, syncope, headache, dizziness, GI bleed, back pain, seizure, CVA, palpatations, mental health, musculoskeletal)? @ -Differential Mental Health Depression, anxiety, bipolar, psychosis, schizophrenia, borderline personality, situational depression, adjustment disorder, behavioral disorder, brain tumor, malingering, substance abuse, encephalopathy, medication reaction, dementia, hypothyroidism, degenerative neurologic disorder, lupus.... This is not meant to be all-inclusive list EKG interpreted by me (3pts min.). @ -None done X-rays interpreted by me (1pt min.). @ -None done CT interpreted by me (1pt min.). @ -None done U/S interpreted by me (1pt. min.). @ -None done What testing was considered but not performed or refused? (CT, X-rays, U/S, labs)? Why? @ -None What meds were considered but not given or refused? Why? @ -None Did you discuss the management of the patient with other professionals (professionals i.e. , PA, TATTOO IDENTIFIER, lab, RT, psych nurse, social sciences research scientist, jewelry finisher, teacher, airfield services officer, case checker)? Give summary @ -EPS notified of the consult. EPS evaluated the patient and determined that he does meet inpatient criteria. Was smoking cessation discussed for >3mins.? @ -No Was critical care preformed (if so, how long)? @ -No Were there social determinants of health that impacted care today? How? (Homelessness, low income, unemployed, alcoholism, drug addiction, transportation, low edu. Level, literacy, decrease access to med. care, shelter, rehab)? @ -No Was there de-escalation of care discussed even if they declined (Discuss DNR or withdrawal of care, Hospice)? DNR status @ -No What co-morbidities impacted this encounter? (DM, HTN, Smoking, COPD, CAD, Cancer, CVA, ARF, Chemo, Hep., AIDS, mental health diagnosis, sleep apnea, morbid obesity)? @ -Mental health history Was patient admitted / discharged? Hospital course, mention meds given and route, prescriptions, significant lab abnormalities, going to OR and other pertinent info. @ -Based on the patient's presentation and physical exam, presents for mental health evaluation. Suicide precautions placed. Sitter ordered. BAT is 0. UDS is pending. Vital signs within acceptable limits. At this time, patient is medically cleared for evaluation by psychiatry. Disposition pending psychiatric evaluation. EPS notified of the consult. EPS mostly evaluated the patient. Patient does meet inpatient psychiatric criteria. Patient will be admitted in stable condition. Undiagnosed new problem with uncertain prognosis? @ -No Drug Therapy requiring intensive monitoring for toxicity (Heparin, Nitro, Insulin, Cardizem)? @ -No Were any procedures done? @ -No Diagnosis/symptom? @ -Suicidal ideation, homicidal ideation with plan Acute, or Chronic, or Acute on Chronic? @ -Acute Uncomplicated (without systemic symptoms) or Complicated (systemic symptoms)? @ -Complicated Side effects of treatment? @ -No Exacerbation, Progression, or Severe Exacerbation? @ -No Poses a threat to life or bodily function? How? (Chest pain, [place], MA, pneumonia, PE, COPD, DKA, ARF, appy, cholecystitis, CVA, Diverticulitis, Homicidal, Suicidal, threat to staff... and all critical care pts) @ -Yes - Lab Data Lab Results 04/02/24 04/02/24 Range/Units 15:22 16:45 Urine Opiates Screen Not Detected (NotDetected) Ur Oxycodone Screen Not Detected (NotDetected) Urine Methadone Screen Not Detected (NotDetected) Ur Barbiturates Screen Not Detected (NotDetected) U Tricyclic Antidepress Detected H (NotDetected) Ur Phencyclidine Scrn Not Detected (NotDetected) Ur Amphetamines Screen Not Detected (NotDetected) U Methamphetamines Scrn Not Detected (NotDetected) U Benzodiazepines Scrn Not Detected (NotDetected) Urine Cocaine Screen Not Detected (NotDetected) U Marijuana (THC) Screen Not Detected (NotDetected) SARS-CoV-2 (PCR) Not Detected (Not Detectd) Disposition Clinical Impression: Suicidal ideation, Homicidal ideation Disposition: TRANSFER TO PSYCH HOSP/UNIT Condition: Stable Is patient prescribed a controlled substance at d/c from ED?: No Time of Disposition: 16:15
[2024-04-02] MEDS: metFORMIN 500 MG TAB PO SCH (21:50)
[2024-04-02] MEDS: LITHIUM CARBONATE 300 MG CAP PO SCH (21:50)
[2024-04-02] MEDS: MELATONIN 5 MG TABLET PO PRN (21:50)
[2024-04-02] MEDS: traZODone HCL 50 MG TAB PO PRN (21:50)
[2024-04-02] MEDS: cloZAPine 100 MG TAB PO SCH (21:50)
--- NOTE | 2024-04-03 01:23 | P.MDCNMH ---
History of Present Illness H&P Date: 04/03/24 Chief Complaint: Medical evaluation 18-year-old male with no reported past medical history Patient came in for evaluation for suicidal ideation. I attempted to interview the patient he seems to be disinterested disengaged continued to be in his bed with his eyes closed and not answering any of my questions. I had the RN at bedside with me who noted that the patient was up and walking around in the hallways just few minutes ago. When asked questions he would make some moaning sounds does pretty much meaningless Patient did not give permission for exam review of systems Patient does not answer questions on exam Constitutional: No acute distress, laying comfortably in bed Eyes: Patient eyes closed open briefly to see who is in the room ENMT: NC/AT Lungs: He seems to be breathing comfortably Skin: Visible portion of the skin seems to be unremarkable Psychiatric: Awake but uncooperative Neuro moving all 4 extremities spontaneously Past Medical History Past Medical History: No Reported History History of Any Multi-Drug Resistant Organisms: None Reported Past Surgical History: No Surgical Hx Reported Past Anesthesia/Blood Transfusion Reactions: No Reported Reaction Past Psychological History: ADD/ADHD, Bipolar, Depression, Schizoaffective Disorder Smoking Status: Current every day smoker Past Alcohol Use History: Daily, Heavy Past Drug Use History: Prescription Drug Abuse - Past Family History Father Family Medical History: Hypertension Medications and Allergies Home Medications Medication Instructions Recorded Confirmed Type [place] Carbonate 300 mg PO HS 30 Days #30 cap 03/22/24 04/02/24 Rx Melatonin 5 mg PO HS PRN 30 Days #30 tab 03/22/24 04/02/24 Rx Nicotine 14Mg/24Hr Patch [Habitrol] 1 patch TRANSDERM DAILY 14 Days 03/22/24 04/02/24 Rx #14 patch cloZAPine [Clozaril] 50 mg PO DAILY 7 Days #7 tab 03/22/24 04/02/24 Rx cloZAPine [Clozaril] 100 mg PO HS 7 Days #7 tab 03/22/24 04/02/24 Rx metFORMIN HCL 500 mg PO BID 30 Days #60 tablet 03/22/24 04/02/24 Rx traZODone HCL [Desyrel] 50 mg PO HS PRN 30 Days #30 tab 03/22/24 04/02/24 Rx Allergies Allergy/AdvReac Type Severity Reaction Status Date / Time No Known Allergies Allergy Verified 04/02/24 16:34 Physical Exam Vitals: Vital Signs Temp Pulse Pulse Resp BP BP Pulse Ox 04/02/24 18:55 97.5 F L 70 18 118/68 04/02/24 14:59 98.2 F 111 H 16 157/89 97 Intake and Output 04/02/24 04/02/24 04/03/24 14:59 22:59 06:59 Other: Weight 75.75 kg 76.4 kg Cranial Nerve Examination - Cranial Nerves Cranial Nerve I- Olfactory: Intact (Unable to perform cranial nerve exam patient did not cooperate) Cranial Nerve II- Optic: Intact Cranial Nerve III- Oculomotor: Intact Cranial Nerve IV- Trochlear: Intact Cranial Nerve V- Trigeminal: Intact Cranial Nerve - Abducens: Intact Cranial Nerve VII- Facial: Intact Cranial Nerve VIII- Auditory: Intact Cranial Nerve IX- Glossopharyngeal: Intact Cranial Nerve X- Vagus: Intact Cranial Nerve XI- Accessory: Intact Cranial Nerve XII- Hypoglossal: Intact Results Labs: Abnormal Lab Results - Last 24 Hours (Table) 04/02/24 Range/Units 15:22 U Tricyclic Antidepress Detected H (NotDetected) Assessment and Plan Assessment: Suicidal ideation Management per psych Patient did not volunteer any information did not answer any questions Follow-up labs when available Urine drug screen positive for tricyclic antidepressant Thank you for this consultation please let us know when patient is more mentally stable and cooperative if there is any medical concerns
[2024-04-03] MEDS: NICOTINE 14MG/24HR PATCH TRANSDERM SCH (08:37)
[2024-04-03] MEDS: cloZAPine 25 MG TAB PO SCH (08:38)
[2024-04-03 11:14] LABS: ALT 27 U/L (4-49); AST 22 U/L (17-59); African American GFR (CKD) >90 (>60 ml/min/1.73 sqM); Albumin 4.1 g/dL (3.5-5.0); Alkaline Phosphatase 80 U/L (38-126); Anion Gap 7 mmol/L; Blood Urea Nitrogen 5 mg/dL (9-20); Calcium 9.6 mg/dL (8.4-10.2); Carbon Dioxide 25 mmol/L (22-30); Chloride 107 mmol/L (98-107); Glucose 94 mg/dL (74-99); Lithium 0.2 mmol/L; Non-African American GFR(CKD) >90 (>60 ml/min/1.73 sqM); Potassium 4.2 mmol/L (3.5-5.1); Sodium 139 mmol/L (137-145); Total Bilirubin 0.7 mg/dL (0.2-1.3); Total Protein 6.8 g/dL (6.3-8.2)
[2024-04-03 11:59] LABS: Basophils % (A) 0 %; Eosinophils % (A) 0 %; HCT 45.2 % (39.0-53.0); HGB 15.4 gm/dL (13.0-17.5); Lymphocytes # (A) 1.7 k/uL (1.0-4.8); Lymphocytes % (A) 17 %; MCH 27.6 pg (25.0-35.0); MCHC 34.1 g/dL (31.0-37.0); MCV 80.7 fL (80.0-100.0); Mean Platelet Volume 7.3; Monocytes # (A) 0.6 k/uL (0-1.0); Monocytes % (A) 6 %; Neutrophils # (A) 7.3 k/uL (1.3-7.7); Neutrophils % (A) 76 %; Platelet Count 307 k/uL (150-450); RDW 12.6 % (11.5-15.5); WBC 9.6 k/uL (4.0-11.0)
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
[2024-04-03] MEDS: LORazepam 1 MG TAB PO PRN (17:24)
[2024-04-03 19:06] LABS: Appearance,Urine Turbid (Clear); Bacteria,Urine Rare /hpf; Bilirubin,Urine Negative (Negative); Blood,Urine Negative (Negative); Color,Urine Yellow; Glucose,Urine (UA) Negative (Negative); Ketones,Urine Negative (Negative); Leukocyte Esterase,Urine Negative (Negative); Mucus,Urine Few /hpf; Nitrite,Urine Negative (Negative); PH, Urine 5.5 (5.0-8.0); Protein,Urine Trace (Negative); RBC,Urine 1 /hpf (0-5); Specific Gravity,Urine 1.028 (1.001-1.035); Squamous Epithelial Cell,Urine 1 /hpf (0-4); Urobilinogen,Urine <2.0 mg/dL (<2.0)
[2024-04-03] MEDS: LITHIUM CARBONATE 150 MG CAP PO SCH (21:49)
[2024-04-04] MEDS: NICOTINE GUM (POLACRILEX) 2 MG GUM BUCCAL PRN (10:06)
--- NOTE | 2024-04-04 11:48 | P.PN ---
Progress Note - Text Progress Note Date: 04/04/24 Interval history: Patient was seen wandering the hallways and was directable and agreeable to speak with ticket writer. Reports feeling better overall. He states that he is not having any homicidal ideation any longer. However, he admits to having command auditory hallucinations that are telling him to hurt himself and others. He states that the voice belongs to somebody named Ramon who is often angry. He endorses suicidal ideation with plan to shoot himself, hang himself, or attempt overdose. He states the medication have been helpful and denies concerns with them. He reports sleeping well and eating well. He endorses good energy during the daytime and is noted to be interacting on the milieu. He was agreeable with his medications being titrated including changing the Clozapine today. He denies any withdrawal symptoms and has not received any Ativan today but received 1 mg yesterday at 1724 for anxiety. Denies any visual hallucinations. Patient denies any side effects from the medications and has been compliant with meds. Vital Signs Temp 97.9 F 04/04/24 07:02 Pulse 69 04/04/24 07:02 Resp 14 04/04/24 07:02 BP 106/74 04/04/24 10:07 Pulse Ox 97 04/04/24 07:02 FiO2 Intake & Output 04/03/24 04/04/24 04/04/24 18:59 06:59 18:59 Weight 76.1 kg Mental status exam: General Appearance: Patient appears to be stated age is alert, directable, and cooperative. Disheveled long hair Behavior: No agitated behavior. Patient is calm and directable Speech: Patient's speech is fluent and nonpressured. Mood/Affect: Mood is improving mildly, affect is congruent and constricted. Suicidality/Homicidality: Denies homicidal ideation. Endorses suicidal ideation with plan Perceptions: Patient denies any visual hallucinations. Endorses auditory hallucinations Though content/process: There is no evidence of any delusional thought content and thought process is linear and goal-directed. Memory and concentration: AOX3, grossly intact for the purposes of this session Judgment and insight: improving mildly Assessment/Plan: Continue with current diagnosis. Patient continues to meet criteria for inpatient psychiatric admission for symptom stabilization and safety. Patient will be maintained on current psychotropic medication regimen. Increase nighttime clozapine to 175 mg for psychosis and for SI. ANC wnl. Monitor for medication compliance and for any psychotropic medication side effects. Will continue to monitor ongoing response to treatment. Encouraged participation in milieu. This provider PERFORMED DUTY TO WARN TO GRANDMOTHER (adopted mother Nia) about patient's homicidal ideation towards her & SAFEKEEPING/REMOVING ACCESS TO GUNS (at cousin's home). Grandmother considering pursuing PPO. SW PLEASE COORDINATE AND CONTINUE TO FOLLOW ACCESS TO GUNS - SAFETY RISK.
[2024-04-04] MEDS: cloZAPine 25 MG TAB PO SCH (21:45)
[2024-04-04] MEDS: cloZAPine 100 MG TAB PO SCH (21:46)
--- NOTE | 2024-04-05 11:34 | P.PN ---
Progress Note - Text Progress Note Date: 04/05/24 Interval History: Patient was seen wandering the hallways and was directable and agreeable to sp barbie with entry writer in the office. Patient claims that he has another person inside him, named Dallin. He states that it is not him that threatens people and tries to hurt people. It is Dallin. He endorses auditory hallucinations, of "Dallin", having a casual conversation with him. Pinion Sorter spoke with patient about different medications, due to the ineffectiveness of Clozapine. Pinion Sorter told patient that I would call his guardian, and speak with her about medication changes/living situation. Patient is endorsing good sleep, and fair appetite. At this time patient denies any suicidal or homicidal ideations, intent or plan. Patient endorses auditory hallucinations, denies visual hallucinations and denies any paranoia or delusions. Patient denies any side effects from the medications and has been compliant with meds. MENTAL STATUS EXAM: General Appearance: Patient appears to be stated age, long shaggy hair with blond highlights, pierced ears. fair hygiene and grooming. Behavior: Patient is seated without any agitated behavior. Fair eye contact. Speech: Patient's speech is fluent and non-pressured. Mood/Affect: Patient reports their mood is improving, affect is congruent and constricted. Suicidality/Homicidality: Patient denies having any homicidal ideation intent or plan. Patient denies suicidal ideation, intent or plan. Perceptions: Patient denies any visual hallucinations and reported auditory hallucinations. Though content/process: There is no evidence of any delusional thought content and thought process is ruminative. focused on discharge Memory and concentration: AOX3, grossly intact for the purposes of this session. Judgment and insight: poor/impaired IMPRESSIONS: Bipolar I disorder, depressed with psychotic features Alcohol use disorder, severe, in withdrawal Tobacco use disorder PLAN: -Patient is admitted under voluntary status to MHU for stabilization of psychiatric symptoms and safety. Patient signed adult voluntary form and medication consent and is placed in patient's chart. -Medications : Clozapine 50 mg qd + 175 mg qHS for psychosis, Iselin 450 mg qHS for mood stabilization. Li level subtherapuetic at 0.2, trazodone 50 mg qHS PRN for sleep & melatonin 5 mg qHS PRN for sleep CIWA protocol with Ativan PRN for alcohol withdrawal -SW on board for discharge planning. Encourage patient to participate in groups to work on coping skills. attempt to call however did not answer and awaiting on a call back from guardian/grandmother to discuss compliance and medication options.
[2024-04-05] MEDS: ARIPiprazole 5 MG TAB PO SCH (13:12)
[2024-04-05 14:03] LABS: Clozapine (Clozaril) 198 ng/mL (200-700); Norclozapine 77 ng/mL (200-700)
[2024-04-05] MEDS ORDERED: cloZAPine 25 MG TAB PO SCH (21:00)
[2024-04-05] MEDS: cloZAPine 100 MG TAB PO SCH (22:31)
[2024-04-05] MEDS: LITHIUM CARBONATE ER 450 MG TABLET.ER PO SCH (22:32)
[2024-04-06] MEDS: cloZAPine 25 MG TAB PO SCH (09:30)
--- NOTE | 2024-04-06 11:44 | P.PN ---
Progress Note - Text Progress Note Date: 04/06/24 Interval History: Patient was seen wandering the hallways and was directable and agreeable to taylor valentin with law writer in the office. Patient claims that he feels great today. When asked if he was seeing things, or hearing things, he stated "not really", and would not elaborate. The patient is not attending groups, stated he does not think that they will help him. General Cleaner encouraged patient to attend groups, and participate in the milieu. Patient is focused on discharge. General Cleaner explained the process of changing his medication safely. Patient verbalized understanding. Patient is endorsing good sleep, and fair appetite. At this time patient denies any suicidal or homicidal ideations, intent or plan. Patient denies auditory hallucinations, denies visual hallucinations and denies any paranoia or delusions. Patient denies any side effects from the medications and has been compliant with meds. MENTAL STATUS EXAM: General Appearance: Patient appears to be stated age, long shaggy hair with blond highlights, pierced ears. fair hygiene and grooming. Behavior: Patient is seated without any agitated behavior. Fair eye contact. Speech: Patient's speech is fluent and non-pressured. Mood/Affect: Patient reports their mood is improving, affect is congruent and constricted. Suicidality/Homicidality: Patient denies having any homicidal ideation intent or plan. Patient denies suicidal ideation, intent or plan. Perceptions: Patient denies any visual hallucinations and denies auditory hallucinations. Though content/process: There is no evidence of any delusional thought content and thought process is ruminative. focused on discharge Memory and concentration: AOX3, grossly intact for the purposes of this session. Judgment and insight: poor/impaired, improving mildly IMPRESSIONS: Bipolar I disorder, depressed with psychotic features Alcohol use disorder, severe, in withdrawal Tobacco use disorder PLAN: -Patient is admitted under voluntary status to MHU for stabilization of psychiatric symptoms and safety. Patient signed adult voluntary form and medication consent and is placed in patient's chart. -Medications :increase Abilify 7.5mg po daily for psychosis, titrate up as tolerated, decrease/continue tapering off Clozapine 12.5 mg qd + 100 mg qHS for psychosis, titrate down, as plan is to be d/c'd and replaced with abilify maintenna IM. Lithobid 450 mg qHS for mood stabilization. trazodone 50 mg qHS PRN for sleep & melatonin 5 mg qHS PRN for sleep. - [facility] protocol with liz CISNEROS on board for discharge planning. Encourage patient to participate in groups to work on coping skills. Plan to switch patient onto SCHAEFFER prior to discharge. hopeful for discharge either friday vs friday
[2024-04-06] MEDS: cloZAPine 100 MG TAB PO SCH (22:42)
[2024-04-07] MEDS ORDERED: cloZAPine 25 MG TAB PO SCH (09:00)
[2024-04-07] MEDS: ARIPiprazole 5 MG TAB PO SCH (09:34)
[2024-04-07] MEDS: cloZAPine 25 MG TAB PO ONE (09:35)
[2024-04-07 09:51] LABS: Basophils % (A) 0 %; Eosinophils % (A) 0 %; HCT 47.2 % (39.0-53.0); HGB 16.7 gm/dL (13.0-17.5); Lymphocytes # (A) 2.2 k/uL (1.0-4.8); Lymphocytes % (A) 16 %; MCH 28.6 pg (25.0-35.0); MCHC 35.3 g/dL (31.0-37.0); MCV 81.1 fL (80.0-100.0); Monocytes # (A) 0.9 k/uL (0-1.0); Monocytes % (A) 7 %; Neutrophils # (A) 10.4 k/uL (1.3-7.7); Neutrophils % (A) 76 %; Platelet Count 326 k/uL (150-450); RBC 5.82 m/uL (4.30-5.90); RDW 12.9 % (11.5-15.5); WBC 13.6 k/uL (4.0-11.0)
--- NOTE | 2024-04-07 14:17 | P.PN ---
Progress Note - Text Progress Note Date: 04/07/24 Interval History: Patient was agreeable to speaking with typewriters functional tester via telehealth in cross-coverage for Dr. Taylor. Patient claims that he feels "pretty good, happy" today. He states he met someone and has a girlfriend now which is helping his mood. He states "I always hear voices, but I don't know what they're saying, they don't really bother me, they're just there". He denies visual hallucinations currently. At this time patient denies any suicidal or homicidal ideations, intent or plan. He is attending some groups. Patient reports good sleep and fair appetite; he ate lunch, slept through breakfast. He denies any paranoia or delusions. Patient denies any side effects from the medications and has been compliant with meds. He appears to be tolerating the Clozapine to Abilify cross- titration. This morning he took his last scheduled morning dose of Clozapine of 12.5 mg daily, and he will continue with 100 mg for tonight, with plan to further taper. He states he is feeling better on the Abilify than the Clozapine, feels more alert. He enquires about discharge tomorrow but we discussed he is still in the middle of a medication cross-titration. MENTAL STATUS EXAM: General Appearance: Patient appears to be stated age, long shaggy hair with blond highlights parted into pigtails, pierced ears and tattoos. Fair hygiene and grooming. Behavior: Patient is seated without any agitated behavior. Good eye contact. Pleasant, calm, attempts to cooperate. Speech: Patient's speech is fluent and non-pressured. Mood/Affect: Patient reports their mood is improving, affect is congruent and constricted. Suicidality/Homicidality: Patient denies having any homicidal ideation intent or plan. Patient denies suicidal ideation, intent or plan. Perceptions: Patient denies any visual hallucinations and denies auditory hallucinations. Though content/process: There is no evidence of any delusional thought content and thought process is ruminative. Focused on discharge. Memory and concentration: AOX3, grossly intact for the purposes of this session. Judgment and insight: Poor/impaired, improving mildly IMPRESSIONS: Bipolar I disorder, depressed with psychotic features Alcohol use disorder, severe, in withdrawal Tobacco use disorder PLAN: -Patient is admitted under voluntary status to MHU for stabilization of psychiatric symptoms and safety. Patient signed adult voluntary form and medication consent and is placed in patient's chart. -Medications: Continue Abilify 7.5mg po daily for psychosis with plan to titrate up. Decrease/continue tapering off Clozapine: he received last dose of 12.5 mg daily this morning, continue with 100 mg QHS for psychosis, taper down, as plan is to to discontinue Clozapine and replace with Abilify Maintenna IM. Continue Lithobid 450 mg qHS for mood stabilization. Continue Trazodone 50 mg qHS PRN for sleep & melatonin 5 mg qHS PRN for sleep. -[facility] protocol with Britt CISNEROS on board for discharge planning. Encourage patient to participate in groups to work on coping skills. Plan to switch patient onto SCHAEFFER prior to discharge.
--- NOTE | 2024-04-08 12:49 | P.PN ---
Progress Note - Text Progress Note Date: 04/08/24 Interval History: Patient was agreeable to speaking with public relations writer in the office today. Patient cl aims that he feels quite a bit better now. He states he is feeling better on the Abilify than the Clozapine,states he feels his mind is more clear. He is asking about discharge, public relations writer explained we are planning to transition him onto a SCHAEFFER, patient agreeable. Patient is no longer endorsing AH. Patient is endorsing good sleep, and fair appetite. Patient offered no complaints, and is not having any symptoms of alcohol withdraw. At this time patient denies any suicidal or homicidal ideations, intent or plan. Patient denies auditory hallucinations, denies visual hallucinations and denies any paranoia or delusions. Patient denies any side effects from the medications and has been compliant with meds. MENTAL STATUS EXAM: General Appearance: Patient appears to be stated age, long shaggy hair with blond highlights parted into pigtails, pierced ears and tattoos. Fair hygiene and grooming. Behavior: Patient is seated without any agitated behavior. Good eye contact. Pleasant, calm, attempts to cooperate. Speech: Patient's speech is fluent and non-pressured. Mood/Affect: Patient reports their mood is improving, affect is congruent and constricted. Suicidality/Homicidality: Patient denies having any homicidal ideation intent or plan. Patient denies suicidal ideation, intent or plan. Perceptions: Patient denies any visual hallucinations and denies auditory hallucinations. Though content/process: There is no evidence of any delusional thought content and thought process improving. Focused on discharge. Memory and concentration: AOX3, grossly intact for the purposes of this session. Judgment and insight: Poor/impaired, improving mildly IMPRESSIONS: Bipolar I disorder, depressed with psychotic features Alcohol use disorder, severe, in withdrawal Tobacco use disorder PLAN: -Patient is admitted under voluntary status to [facility]HU for stabilization of psychiatric symptoms and safety. Patient signed adult voluntary form and medication consent and is placed in patient's chart. -Medications: increase Abilify 10mg po daily for psychosis with plan to titrate up. Decrease/continue tapering off Clozapine:50 mg QHS for psychosis, taper down, as plan is to to discontinue Clozapine and replace with Abilify Maintenna IM. Lithobid 450 mg qHS for mood stabilization. increase Trazodone 100 mg qHS for sleep, increase melatonin 6 mg qHS for sleep. -[facility] protocol with Britt CISNEROS on board for discharge planning. Encourage patient to participate in groups to work on coping skills. Plan to switch patient onto SCHAEFFER prior to discharge. Likely discharge early next week.
[2024-04-08] MEDS: ARIPiprazole 5 MG TAB PO ONE (13:32)
[2024-04-08] MEDS: MELATONIN 3 MG TABLET PO SCH (21:23)
[2024-04-08] MEDS: traZODone HCL 100 MG TAB PO SCH (21:23)
[2024-04-08] MEDS: cloZAPine 25 MG TAB PO SCH (21:23)
[2024-04-09] MEDS: ARIPiprazole 10 MG TAB PO SCH (09:02)
--- NOTE | 2024-04-09 11:17 | P.PN ---
Progress Note - Text Progress Note Date: 04/09/24 Interval History: Patient was agreeable to speaking with financial writer in the office today. Patient sta dung that he is doing well today. He claims that he had quite a bunch of anxiety last night, and required Ativan. He was having problems initiating sleep last night, financial writer spoke to the patient about increasing trazodone. Patient agreeable. Game Agent also spoke to patient about receiving a SCHAEFFER on Friday, patient agreeable. Patient endorses a good appetite. At this time patient denies any suicidal or homicidal ideations, intent or plan. Patient is endorsing auditory hallucinations today, but states they are very quiet, and denies visual hallucinations and denies any paranoia or delusions. Patient denies any side effects from the medications and has been compliant with meds. MENTAL STATUS EXAM: General Appearance: Patient appears to be stated age, long shaggy hair with blond highlights parted into pigtails, pierced ears and tattoos. Fair hygiene and grooming. Behavior: Patient is seated without any agitated behavior. Good eye contact. Pleasant, calm, attempts to cooperate. Speech: Patient's speech is fluent and non-pressured. Mood/Affect: Patient reports their mood is improving, affect is congruent and constricted. Suicidality/Homicidality: Patient denies having any homicidal ideation intent or plan. Patient denies suicidal ideation, intent or plan. Perceptions: Patient denies any visual hallucinations and endorses quiet auditory hallucinations. Though content/process: There is no evidence of any delusional thought content and thought process improving. Memory and concentration: AOX3, grossly intact for the purposes of this session. Judgment and insight: Poor/impaired, improving mildly IMPRESSIONS: Bipolar I disorder, depressed with psychotic features Alcohol use disorder, severe, in withdrawal Tobacco use disorder PLAN: -Patient is admitted under voluntary status to MHU for stabilization of psychiatric symptoms and safety. Patient signed adult voluntary form and medication consent and is placed in patient's chart. -Medications: increase Abilify 15 mg po daily for psychosis with plan to titrate up. Decrease/continue tapering off Clozapine: 25mg QHS for psychosis, taper down, as plan is to to discontinue Clozapine after tonights dose. Lithobid 450 mg qHS for mood stabilization. increase Trazodone 200 mg qHS for sleep, melatonin 6 mg qHS for sleep. -d/c SIMEON CISNEROS on board for discharge planning. Encourage patient to participate in groups to work on coping skills. Plan to switch patient onto SCHAEFFER prior to discharge, will likely give SCHAEFFER friday. Likely discharge early next week.
[2024-04-09] MEDS: cloZAPine 25 MG TAB PO SCH (20:50)
[2024-04-09] MEDS: traZODone HCL 100 MG TAB PO SCH (20:51)
[2024-04-10] MEDS: ARIPiprazole 15 MG TAB PO SCH (08:21)
--- NOTE | 2024-04-10 14:14 | P.PN ---
Subjective Progress Note Date: 04/10/24 Principal diagnosis: BIPOLAR 1 WITH PSYCHOSIS Interval History: Patient was agreeable to speaking with brief writer in the office today. He was socializing well with a visitor but was willing to come for a couple minutes and talk to me and then go back to visitor Patient states that he is doing well today. Patient agreeable.He will be receiving a SCHAEFFER on Friday, patient agreeable. Patient endorses a good appetite. At this time patient denies any suicidal or homicidal ideations, intent or plan. Patient is endorsing auditory hallucinations today, but states they are very quiet, and denies visual hallucinations and denies any paranoia or delusions. Patient denies any side effects from the medications and has been compliant with meds. MENTAL STATUS EXAM: good eye contact cooperative General Appearance: Patient appears to be stated age, long shaggy hair with blond highlights parted into pigtails, pierced ears and tattoos. Fair hygiene and grooming. Behavior: Patient is seated without any agitated behavior. Good eye contact. Pleasant, calm, attempts to cooperate. Speech: Patient's speech is fluent and non-pressured. Mood/Affect: Patient reports their mood is improving, affect is congruent and constricted. Suicidality/Homicidality: Patient denies having any homicidal ideation intent or plan. Patient denies suicidal ideation, intent or plan. Perceptions: Patient denies any visual hallucinations and endorses quiet auditory hallucinations. Though content/process: There is no evidence of any delusional thought content and thought process improving. Memory and concentration: AOX3, grossly intact for the purposes of this session. Judgment and insight: Poor/impaired, improving mildly IMPRESSIONS: Bipolar I disorder, depressed with psychotic features Alcohol use disorder, severe, in withdrawal Tobacco use disorder PLAN: no change patient seems to be doing well -Patient is admitted under voluntary status to MHU for stabilization of psychiatric symptoms and safety. Patient signed adult voluntary form and medication consent and is placed in patient's chart. -Medications: increase Abilify 15 mg po daily for psychosis with plan to titrate up. Decrease/continue tapering off Clozapine: 25mg QHS for psychosis, taper down, as plan is to to discontinue Clozapine after tonights dose. Lithobid 450 mg qHS for mood stabilization. increase Trazodone 200 mg qHS for sleep, melatonin 6 mg qHS for sleep. -d/c SIMEON CISNEROS on board for discharge planning. Encourage patient to participate in groups to work on coping skills. Plan to switch patient onto SCHAEFFER prior to discharge, will likely give SCHAEFFER friday. Likely discharge early next week. Objective - Vital Signs Vital signs: Vital Signs Temp 97.9 F 04/10/24 03:55 Pulse 103 H 04/10/24 03:55 Resp 17 04/10/24 03:55 BP 101/68 04/10/24 03:55 Pulse Ox 97 04/10/24 03:55 FiO2 - Labs CBC & Chem 7: 04/07/24 09:30 04/03/24 10:06
[2024-04-11] MEDS: MAG HYDROX/AL HYDROX/SIMETH 355 ML BOTTLE PO PRN (08:18)
--- NOTE | 2024-04-11 08:32 | P.PN ---
Subjective Progress Note Date: 04/11/24 Principal diagnosis: BIPOLAR 1 WITH PSYCHOSIS Interval History: Patient was agreeable to speaking with check writer salesperson in the office today.he says that he is tolerating the Abilify well and looking forward to getting a shot tomorrow and discharge early this week if that goes well. he said he slept well 8 a good breakfast appetite is fine no psychotic symptoms no suicidal thoughts th ehallucinations seem to be controlled on the Abilify. At this time patient denies any suicidal or homicidal ideations, intent or plan. MENTAL STATUS EXAM: good eye contact cooperative General Appearance: Patient appears to be stated age, long shaggy hair with blond highlights parted into pigtails, pierced ears and tattoos. Fair hygiene and grooming. Behavior: Patient is seated without any agitated behavior. Good eye contact. Pleasant, calm, attempts to cooperate. Speech: Patient's speech is fluent and non-pressured. Mood/Affect: Patient reports their mood is improving, affect is congruent and constricted. Suicidality/Homicidality: Patient denies having any homicidal ideation intent or plan. Patient denies suicidal ideation, intent or plan. Perceptions: Patient denies any visual hallucinations and endorses quiet auditory hallucinations. Though content/process: There is no evidence of any delusional thought content and thought process improving. Memory and concentration: AOX3, grossly intact for the purposes of this session. Judgment and insight: Poor/impaired, improving mildly IMPRESSIONS: Bipolar I disorder, depressed with psychotic features Alcohol use disorder, severe, in withdrawal Tobacco use disorder PLAN: no change patient seems to be doing well -Patient is admitted under voluntary status to [facility]HU for stabilization of psychiatric symptoms and safety. Patient signed adult voluntary form and medication consent and is placed in patient's chart. -Medications: increase Abilify 15 mg po daily for psychosis with plan to titrate up. Decrease/continue tapering off Clozapine: 25mg QHS for psychosis, taper down, as plan is to to discontinue Clozapine after tonights dose. Lithobid 450 mg qHS for mood stabilization. increase Trazodone 200 mg qHS for sleep, melaton in 6 mg qHS for sleep. -d/c SIMEON -BRANDON on board for discharge planning. Encourage patient to participate in groups to work on coping skills. Plan to switch patient onto SCHAEFFER prior to discharge, will likely give SCHAEFFER friday. Likely discharge early next week. Objective - Vital Signs Vital signs: Vital Signs Temp 97.9 F 04/10/24 03:55 Pulse 110 H 04/11/24 08:20 Resp 17 04/10/24 03:55 BP 108/66 04/11/24 08:20 Pulse Ox 97 04/10/24 03:55 FiO2 - Labs CBC & Chem 7: 04/07/24 09:30 04/03/24 10:06
[2024-04-12 07:00] VITALS: BP 105/60; PULSE 50; RESP 16; TEMP 98.2
== END 2024-04-13 16:01 | disposition home or self-care (01) | DRG 750 ==
LOC: EC 14:58 → 3MHU 18:16
PROVIDERS: ADMIT Psychiatry & Neurology Psychiatry; ATTEND Psychiatry & Neurology Psychiatry
DX: F25.9 Schizoaffective disorder, unspecified (principal); F10.20 Alcohol dependence, uncomplicated; F17.210 Nicotine dependence, cigarettes, uncomplicated; F31.9 Bipolar disorder, unspecified; F41.9 Anxiety disorder, unspecified; F90.9 Attention-deficit hyperactivity disorder, unspecified type; G47.10 Hypersomnia, unspecified; R45.850 Homicidal ideations; R45.851 Suicidal ideations; Z79.84 Long term (current) use of oral hypoglycemic drugs; Z79.899 Other long term (current) drug therapy; Z81.8 Family history of other mental and behavioral disorders; Z91.199 Patient's noncompliance with other medical treatment and regimen due to unspecified reason; F12.90 Cannabis use, unspecified, uncomplicated
CPT/HCPCS: 80053; 80159; 80178; 80306; 81001; 82075; 84443; 85025; 87635; 93005; 99285

== ENCOUNTER 2024-06-01 18:00 | Inpatient (IN) | payer MEDICAID, OTHER ==
--- NOTE | 2024-06-01 20:05 | ED ---
Psych HPI - General Chief Complaint: Psychiatric Symptoms Stated Complaint: mental health Time Seen by Provider: 06/01/24 18:19 Source: patient, family, RN notes reviewed Mode of arrival: ambulatory Limitations: no limitations - History of Present Illness Initial Comments: 18-year-old male presents emergency department with chief complaint of homicidal ideation. Patient states he has a history of schizophrenia states he gets fixated on people and states he is try to harm people in the past he has not MDM but at this time. Patient states that he is on multiple medication that he has hospitalized 2 months ago for similar reasons here. - Related Data Previous Rx's Medication Instructions Recorded [place] Carbonate 300 mg PO HS 30 Days #30 cap 03/22/24 Melatonin 5 mg PO HS PRN 30 Days #30 tab 03/22/24 Nicotine 14Mg/24Hr Patch [Habitrol] 1 patch TRANSDERM DAILY 14 Days 03/22/24 #14 patch cloZAPine [Clozaril] 50 mg PO DAILY 7 Days #7 tab 03/22/24 cloZAPine [Clozaril] 100 mg PO HS 7 Days #7 tab 03/22/24 metFORMIN HCL 500 mg PO BID 30 Days #60 tablet 03/22/24 traZODone HCL [Desyrel] 50 mg PO HS PRN 30 Days #30 tab 03/22/24 Allergies Allergy/AdvReac Type Severity Reaction Status Date / Time No Known Allergies Allergy Verified 06/01/24 18:06 Review of Systems ROS Statement: Those systems with pertinent positive or pertinent negative responses have been documented in the HPI. ROS Other: All systems not noted in ROS Statement are negative. Past Medical History Past Medical History: No Reported History History of Any Multi-Drug Resistant Organisms: None Reported Past Surgical History: No Surgical Hx Reported Past Anesthesia/Blood Transfusion Reactions: No Reported Reaction Past Psychological History: ADD/ADHD, Bipolar, Depression, Schizoaffective Disorder Smoking Status: Current every day smoker Past Alcohol Use History: Daily, Heavy Past Drug Use History: Prescription Drug Abuse - Past Family History Father Family Medical History: Hypertension General Exam Limitations: no limitations General appearance: alert, in no apparent distress Head exam: Present: atraumatic, normocephalic, normal inspection Eye exam: Present: normal appearance, PERRL, EOMI. Absent: scleral icterus, conjunctival injection, periorbital swelling Neck exam: Present: normal inspection. Absent: tenderness, meningismus, lymphadenopathy Respiratory exam: Present: normal lung sounds bilaterally. Absent: respiratory distress, wheezes, rales, rhonchi, stridor Cardiovascular Exam: Present: regular rate, normal rhythm, normal heart sounds. Absent: systolic murmur, diastolic murmur, rubs, gallop, clicks Neurological exam: Present: alert, oriented X3 Psychiatric exam: Present: anxious Skin exam: Present: warm, dry, intact, normal color. Absent: rash Course Vital Signs 06/01/24 18:03 Temperature 98.5 F Pulse Rate 76 Respiratory 16 Rate Blood Pressure 126/64 O2 Sat by Pulse 97 Oximetry Medical Decision Making - Medical Decision Making Was pt. sent in by a medical professional or institution (, PA, MATERIAL HANDLER 1ST SHIFT, urgent care, hospital, or care home...) When possible be specific @ -[No] Did you speak to anyone other than the patient for history (EMS, parent, family, police, friend...)? What history was obtained from this source @ -[No] Did you review nursing and triage notes (agree or disagree)? Why? @ -[I reviewed and agree with nursing and triage notes] Were old charts reviewed (outside hosp., previous admission, EMS record, old EKG, old radiological studies, urgent care reports/EKG's, care home records)? Report findings @ -[No old charts were reviewed] Differential Diagnosis (chest pain, altered mental status, abdominal pain women, abdominal pain men, vaginal bleeding, weakness, fever, dyspnea, syncope, heada bruce, dizziness, GI bleed, back pain, seizure, CVA, palpatations, mental health, musculoskeletal)? @ -Differential Mental Health Depression, anxiety, bipolar, psychosis, schizophrenia, borderline personality, situational depression, adjustment disorder, behavioral disorder, brain tumor, malingering, substance abuse, encephalopathy, medication reaction, dementia, hypothyroidism, degenerative neurologic disorder, lupus.... This is not meant to be all-inclusive list EKG interpreted by me (3pts min.). @ -None X-rays interpreted by me (1pt min.). @ -[None done] CT interpreted by me (1pt min.). @ -[None done] U/S interpreted by me (1pt. min.). @ -[None done] What testing was considered but not performed or refused? (CT, X-rays, U/S, labs)? Why? @ -[None] What meds were considered but not given or refused? Why? @ -[None] Did you discuss the management of the patient with other professionals (professionals i.e. , PA, MATERIAL HANDLER 1ST SHIFT, lab, RT, psych nurse, social welfare clerk, granular operator, teacher, credit control officer, patient case manager)? Give summary @ -EPS who evaluated the patient discussed with psychiatry recommends inpatient treatment Was smoking cessation discussed for >3mins.? @ -[No] Was critical care preformed (if so, how long)? @ -[No] Were there social determinants of health that impacted care today? How? (Homelessness, low income, unemployed, alcoholism, drug addiction, transportation, low edu. Level, literacy, decrease access to med. care, care home, rehab)? @ -[No] Was there de-escalation of care discussed even if they declined (Discuss DNR or withdrawal of care, Hospice)? DNR status @ -[No] What co-morbidities impacted this encounter? (DM, HTN, Smoking, COPD, CAD, Cancer, CVA, ARF, Chemo, Hep., AIDS, mental health diagnosis, sleep apnea, morbid obesity)? @ -[None] Was patient admitted / discharged? Hospital course, mention meds given and route, prescriptions, significant lab abnormalities, going to OR and other pertinent info. @ -Admitted patient is admitted to 3 W. psychiatric treatment Undiagnosed new problem with uncertain prognosis? @ -[No] Drug Therapy requiring intensive monitoring for toxicity (Heparin, Nitro, Insulin, Cardizem)? @ -[No] Were any procedures done? @ -[No] Diagnosis/symptom? @ -Homicidal ideation, suicidal, depression Acute, or Chronic, or Acute on Chronic? @ -Acute Uncomplicated (without systemic symptoms) or Complicated (systemic symptoms)? @ -Complicated Side effects of treatment? @ -[No] Exacerbation, Progression, or Severe Exacerbation? @ -[No] Poses a threat to life or bodily function? How? (Chest pain, [place], DC, pneumonia, PE, COPD, DKA, ARF, appy, cholecystitis, CVA, Diverticulitis, Homicidal, Suicidal, threat to staff... and all critical care pts) @ -Yes patient is suicidal - Lab Data Lab Results 06/01/24 06/01/24 Range/Units 20:09 22:18 Urine Opiates Screen Not Detected (NotDetected) Ur Oxycodone Screen Not Detected (NotDetected) Urine Methadone Screen Not Detected (NotDetected) Ur Barbiturates Screen Not Detected (NotDetected) U Tricyclic Antidepress Not Detected (NotDetected) Ur Phencyclidine Scrn Not Detected (NotDetected) Ur Amphetamines Screen Not Detected (NotDetected) U Methamphetamines Scrn Not Detected (NotDetected) U Benzodiazepines Scrn Not Detected (NotDetected) Urine Cocaine Screen Not Detected (NotDetected) U Marijuana (THC) Screen Detected H (NotDetected) Influenza Type A (PCR) Not Detected (Not Detectd) Influenza Type B (PCR) Not Detected (Not Detectd) RSV (PCR) Not Detected (Not Detectd) SARS-CoV-2 (PCR) Not Detected (Not Detectd) Disposition Clinical Impression: Depression, Homicidal ideation, Suicidal ideation Disposition: TRANSFER TO PSYCH HOSP/UNIT Referrals: Tre Anderson MD [Primary Care Provider] - 1-2 days Time of Disposition: 21:58
[2024-06-01 20:45] LABS: Amphetamine Screen,Urine Not Detected (NotDetected); Barbiturate Screen,Urine Not Detected (NotDetected); Benzodiazepines Screen,Urine Not Detected (NotDetected); Cocaine Screen,Urine Not Detected (NotDetected); Methadone Screen, Urine Not Detected (NotDetected); Opiate Screen,Urine Not Detected (NotDetected); Oxycodone Screen, Urine Not Detected (NotDetected); Phencyclidine Screen,Urine Not Detected (NotDetected); Tricyclic Antidepressant,Urine Not Detected (NotDetected); Urn Cannabinoid Scrn Detected (NotDetected)
[2024-06-02] MEDS ORDERED: MAGNESIUM HYDROXIDE 2,400 MG/30 ML CUP PO PRN (00:21)
[2024-06-02] MEDS ORDERED: ACETAMINOPHEN TAB 325 MG TAB PO PRN (00:21)
[2024-06-02] MEDS ORDERED: LORazepam 2 MG/ML INJ IM PRN (00:21)
[2024-06-02] MEDS ORDERED: haloperidoL 5 MG TAB PO PRN (00:21)
[2024-06-02] MEDS ORDERED: HALOPERIDOL LACTATE 5 MG/ML 1 ML VIAL IM PRN (00:21)
[2024-06-02] MEDS ORDERED: MAG HYDROX/AL HYDROX/SIMETH 355 ML BOTTLE PO PRN (00:21)
[2024-06-02] MEDS: PALIPERIDONE 3 MG TAB.ER.24 PO SCH (01:28)
[2024-06-02] MEDS: LITHIUM CARBONATE 150 MG CAP PO SCH (01:28)
[2024-06-02] MEDS: traZODone HCL 50 MG TAB PO SCH (01:29)
[2024-06-02] MEDS: NICOTINE 21MG/24HR PATCH TRANSDERM SCH (09:04)
[2024-06-02] MEDS: metFORMIN 500 MG TAB PO SCH (09:04)
[2024-06-02 09:18] LABS: Appearance,Urine Cloudy (Clear); Bilirubin,Urine Negative (Negative); Blood,Urine Negative (Negative); Calcium Oxalate Crystals,Urine Moderate /hpf; Color,Urine Yellow; Glucose,Urine (UA) Negative (Negative); Ketones,Urine Negative (Negative); Leukocyte Esterase,Urine Negative (Negative); Mucus,Urine Few /hpf; Nitrite,Urine Negative (Negative); PH, Urine 5.5 (5.0-8.0); Protein,Urine Negative (Negative); RBC,Urine 2 /hpf (0-5); Specific Gravity,Urine 1.024 (1.001-1.035); Squamous Epithelial Cell,Urine <1 /hpf (0-4); WBC,Urine 2 /hpf (0-5)
[2024-06-02 10:39] LABS: Basophils % (A) 0 %; Eosinophils % (A) 0 %; HCT 49.1 % (39.0-53.0); HGB 16.9 gm/dL (13.0-17.5); Lymphocytes # (A) 1.6 k/uL (1.0-4.8); Lymphocytes % (A) 18 %; MCH 28.4 pg (25.0-35.0); MCHC 34.4 g/dL (31.0-37.0); MCV 82.6 fL (80.0-100.0); Mean Platelet Volume 7.2; Monocytes # (A) 0.5 k/uL (0-1.0); Monocytes % (A) 5 %; Neutrophils % (A) 76 %; Platelet Count 301 k/uL (150-450); RBC 5.94 m/uL (4.30-5.90); RDW 13.5 % (11.5-15.5); WBC 9.3 k/uL (4.0-11.0)
[2024-06-02 10:49] LABS: ALT 23 U/L (4-49); AST 19 U/L (17-59); African American GFR (CKD) >90 (>60 ml/min/1.73 sqM); Albumin 4.5 g/dL (3.5-5.0); Alkaline Phosphatase 71 U/L (38-126); Anion Gap 6 mmol/L; Blood Urea Nitrogen 9 mg/dL (9-20); Calcium 10.6 mg/dL (8.4-10.2); Carbon Dioxide 32 mmol/L (22-30); Chloride 103 mmol/L (98-107); Glucose 98 mg/dL (74-99); Non-African American GFR(CKD) >90 (>60 ml/min/1.73 sqM); Potassium 4.5 mmol/L (3.5-5.1); Sodium 141 mmol/L (137-145); Total Bilirubin 0.9 mg/dL (0.2-1.3); Total Protein 7.5 g/dL (6.3-8.2)
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
[2024-06-02] MEDS: IBUPROFEN 600 MG TAB PO PRN (22:57)
--- NOTE | 2024-06-03 10:12 | P.PN ---
Progress Note - Text Progress Note Date: 06/03/24 Interval History: Patient was seen in group and was directable and agreeable to speak with lead technical writer in the office. He states that he is no longer feeling suicidal anymore, but does feel homicidal toward one person. He is evasive when he speaks of this gabi, and will not tell us who it is. He is endorsing AH/VH, but states he just ignores this. He is not endorsing any anxiety or depression. He states he slept well last night, and his appetite is good. Patient is interested in going to rehab. Will give information for the access line. At this time patient denies any suicidal ideations, intent or plan. He does admit to homicidal ideation. Patient endorses auditory, visual hallucinations and denies any paranoia or delusions. Patient denies any side effects from the medications and has been compliant with meds. MENTAL STATUS EXAM: General Appearance: Patient appears to be stated age is alert, directable, and attempts to cooperate. Patient appears to have fair hygiene and grooming. Longer hair, shaved around the bottom. Tattoos, and dressed casually. Behavior: Patient is seated without any agitated behavior. Speech: Patient's speech is fluent and nonpressured. Mood/Affect: Patient reports their mood is regretful, affect is congruent and constricted. Suicidality/Homicidality: Patient endorses homicidal ideation. Denies suicidal ideations, no intent or plan Perceptions: Patient admits to visual hallucinations and admits to auditory hallucinations Though content/process: There is no evidence of any delusional thought content and thought process is linear and goal-directed. Memory and concentration: AOX3, grossly intact for the purposes of this session. Judgment and insight: Poor, mildly improving IMPRESSIONS: schizoaffective disorder, bipolar type nicotine dependance alcohol use disorder PLAN: -Patient is admitted under involuntary status to MHU for stabilization of psychiatric symptoms and safety. A second certification was completed and along with petition will be filed for court. -Medications : Invega 3mg bid for psychosis, trazodone 200mg qhs for sleep. Add Zoloft 50mg daily depression/anxiety. -Ativan and Haldol PRN for agitation/aggression -thiamine, MVM for etoh use -CIWA protocol with Ativan PRN for ETOH withdrawal -NRT - nicotine patch -SW on board for discharge planning. Encourage patient to participate in groups to work on coping skills. Patient is interested in going to rehab. Will await deferral and court date.
[2024-06-03] MEDS: SERTRALINE 50 MG TAB PO SCH (10:14)
[2024-06-03] MEDS: THIAMINE 100 MG TAB PO SCH (10:14)
[2024-06-03] MEDS: FOLIC ACID 1 MG TAB PO SCH (10:14)
[2024-06-03] MEDS: MULTIVITAMINS, THERA 1 EACH TAB PO SCH (10:14)
[2024-06-03 13:15] LABS: ALT 23 U/L (4-49); AST 23 U/L (17-59); Albumin 4.8 g/dL (3.5-5.0); Alkaline Phosphatase 76 U/L (38-126); Bilirubin, Delta 0.3 mg/dL (0.0-0.2); Bilirubin,Unconjugated 1.2 mg/dL (0.0-1.1); Total Bilirubin 1.5 mg/dL (0.2-1.3); Total Protein 7.6 g/dL (6.3-8.2)
[2024-06-03] MEDS: MELATONIN 3 MG TABLET PO PRN (21:46)
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
[2024-06-04] MEDS: metFORMIN 500 MG TAB PO SCH (08:28)
--- NOTE | 2024-06-04 11:48 | P.PN ---
Progress Note - Text Progress Note Date: 06/04/24 Interval History: Patient was seen in group and was directable and agreeable to speak with technical writer in the office. He states that he is no longer feeling suicidal anymore, nor homicidal. He states he is just going to forget about that kid. He is not endorsing any depression or anxiety He states he slept well last night, and his appetite is good. Patient is interested in going to rehab, he did call the access line. [facility] spoke with patient about receiving a SCHAEFFER, patient agreeable. At this time patient denies any suicidal ideations, intent or plan. He denies homicidal ideation. he continues to want to go to rehab. Patient endorses auditory, visual hallucinations, however, he states these are getting much better, and denies any paranoia or delusions. Patient denies any side effects from the medications and has been compliant with meds. MENTAL STATUS EXAM: General Appearance: Patient appears to be stated age is alert, directable, and attempts to cooperate. Patient appears to have fair hygiene and grooming. Longer hair, shaved around the bottom. Tattoos, and dressed casually Behavior: Patient is seated without any agitated behavior Speech: Patient's speech is fluent and nonpressured Mood/Affect: Patient reports their mood is pretty good, affect is congruent and constricted. mildly improving Suicidality/Homicidality: Patient denies homicidal ideation. Denies suicidal ideations, no intent or plan Perceptions: Patient admits to visual hallucinations and admits to auditory vidales llucinations, improving Though content/process: There is no evidence of any delusional thought content and thought process is linear and goal-directed Memory and concentration: AOX3, grossly intact for the purposes of this session Judgment and insight: Poor, mildly improving IMPRESSIONS: schizoaffective disorder, bipolar type nicotine dependance alcohol use disorder PLAN: -Patient is admitted under involuntary status to MHU for stabilization of psychiatric symptoms and safety. -Medications : Invega 3mg bid , decrease to once daily Friday for psychosis, trazodone 200mg qhs for sleep. Zoloft 50mg daily depression/anxiety. Add Invega Sustenna 234mg IM today, 06/04, 156mg IM Friday, then monthly, maintenance dose of 117mg to be given on 07/06 -Ativan and Haldol PRN for agitation/aggression -thiamine, MVM for etoh use -CIWA protocol with Ativan PRN for ETOH withdrawal -NRT - nicotine patch -SW on board for discharge planning. Encourage patient to participate in groups to work on coping skills. Patient is interested in going to rehab. Patient deferred with [employer] [place] attorney on 06/03. Likely d/c friday, after second dose of SCHAEFFER.
[2024-06-04] MEDS: PALIPERIDONE IM 234 MG/1.5 ML SYG IM STA (12:00)
[2024-06-04 15:41] LABS: LDL Cholesterol,Calculated 37.8 mg/dL (0.0-131.0); VLDL Calculation 10.26 mg/dL (5.00-40.00)
[2024-06-04] MEDS: PALIPERIDONE 3 MG TAB.ER.24 PO SCH (20:56)
[2024-06-04] MEDS: PALIPERIDONE 3 MG TAB.ER.24 PO ONE (21:03)
--- NOTE | 2024-06-05 14:54 | P.PN ---
Progress Note - Text Interval history: Patient was seen [wandering the hallways] and was directable and agreeable to speak with keno writer / runner.denies withdrawal symptoms. At this time patient denies any suicidal or homicidal ideations intent or plan. Denies any Auditory or visual hallucinations. Patient denies any side effects from the medications and has b een compliant with meds. Mental status exam: General Appearance: [Patient appears to be stated age is alert, directable, and cooperative.] Behavior: [No agitated behavior. Patient is calm and directable] Speech: Patient's speech is fluent and nonpressured. Mood/Affect: Mood is improving mildly, affect is congruent and constricted. Suicidality/Homicidality: Patient denies having any suicidal or homicidal ideation intent or plan. Perceptions: Patient denies any auditory or visual hallucinations. Though content/process: [There is no evidence of any delusional thought content and thought process is linear and goal-directed.] Memory and concentration: AOX3, grossly intact for the purposes of this session Judgment and insight: improving mildly Assessment/Plan: Continue with current diagnosis. Patient continues to meet criteria for inpatient psychiatric admission for symptom stabilization and safety.[Patient will be maintained on current psychotropic medication regimen.] Monitor for medication compliance and for any psychotropic medication side effects. Will continue to monitor ongoing response to treatment. Encouraged participation in milieu.
--- NOTE | 2024-06-06 22:45 | P.PN ---
Progress Note - Text Interval history: Patient was seen [wandering the hallways] and was directable and agreeable to speak with technical writer and editor.denies withdrawal symptoms. At this time patient denies any suicidal or homicidal ideations intent or plan. Denies any Auditory or visual hallucinations. Patient denies any side effects from the medications and has b een compliant with meds. Mental status exam: General Appearance: [Patient appears to be stated age is alert, directable, and cooperative.] Behavior: [No agitated behavior. Patient is calm and directable] Speech: Patient's speech is fluent and nonpressured. Mood/Affect: Mood is improving mildly, affect is congruent and constricted. Suicidality/Homicidality: Patient denies having any suicidal or homicidal ideation intent or plan. Perceptions: Patient denies any auditory or visual hallucinations. Though content/process: [There is no evidence of any delusional thought content and thought process is linear and goal-directed.] Memory and concentration: AOX3, grossly intact for the purposes of this session Judgment and insight: improving mildly Assessment/Plan: Continue with current diagnosis. Patient continues to meet criteria for inpatient psychiatric admission for symptom stabilization and safety.[Patient will be maintained on current psychotropic medication regimen.] Monitor for medication compliance and for any psychotropic medication side effects. Will continue to monitor ongoing response to treatment. Encouraged participation in milieu.
--- NOTE | 2024-06-07 11:18 | P.PN ---
Progress Note - Text Progress Note Date: 06/07/24 Interval History: Patient was seen in the hallway, and was directable and agreeable to speak with promotion writer in the office. He states that he is doing great today, and he is happy. The patient is smiling throughout the interview. The patient is tolerating the SCHAEFFER well. He offers no complaints. He states that he is sleeping very well. He endorses a good appetite. The patient states that he is not having any withdraw symptoms from alcohol at this time. At this time patient denies any suicidal ideations, intent or plan. He denies homicidal ideation. he continues to want to go to rehab. Patient denies auditory, visual hallucinations, Patient denies any side effects from the medications and has been compliant with meds. MENTAL STATUS EXAM: General Appearance: Patient appears to be stated age is alert, directable, and attempts to cooperate. Patient appears to have fair hygiene and grooming. Longer hair, shaved around the bottom. Tattoos, and dressed casually Behavior: Patient is seated without any agitated behavior Speech: Patient's speech is fluent and nonpressured Mood/Affect: Patient reports their mood is pretty good, affect is congruent and constricted. mildly improving Suicidality/Homicidality: Patient denies homicidal ideation. Denies suicidal ideations, no intent or plan Perceptions: Patient denies visual hallucinations and denies auditory hallucinations Though content/process: There is no evidence of any delusional thought content and thought process is linear and goal-directed Memory and concentration: AOX3, grossly intact for the purposes of this session Judgment and insight: improving IMPRESSIONS: schizoaffective disorder, bipolar type nicotine dependance alcohol use disorder PLAN: -Patient is admitted under involuntary status to MHU for stabilization of psychiatric symptoms and safety. -Medications : trazodone 200mg qhs for sleep. Zoloft 50mg daily depression/anxiety. Invega Sustenna 234mg IM given on 06/04, 156mg IM due on 06/08, then monthly, maintenance dose of 117mg to be given on 07/06 -Ativan and Haldol PRN for agitation/aggression -thiamine, MVM for etoh use -NRT - nicotine patch -SW on board for discharge planning. Encourage patient to participate in groups to work on coping skills. Patient is interested in going to rehab, awaiting munira roval. Patient deferred with state's attorney on 06/03. Likely d/c friday, after second dose of SCHAEFFER.
[2024-06-07] MEDS: LORazepam 1 MG TAB PO PRN (11:59)
[2024-06-08 07:13] VITALS: RESP 14
--- NOTE | 2024-06-08 10:25 | P.PN ---
Progress Note - Text Progress Note Date: 06/08/24 Interval History: Patient was seen in the hallway, and was directable and agreeable to speak with fha underwriter in the office. He states that he is doing better today overall, claims that he has been socializing on the unit, attending groups during the day. He claims that he is still having no side effects or problems from the first long- acting shot, agreeable to take the second long-acting dose tonight. Claims that he is eating fairly, slept through the night last night, claims that the voices have completely gone away now, he is not endorsing any paranoia or delusions today. At this time patient denies any suicidal ideations, intent or plan. He denies homicidal ideation. he continues to want to go to rehab. Patient denies auditory, visual hallucinations, Patient denies any side effects from the medications and has been compliant with meds. MENTAL STATUS EXAM: General Appearance: Patient appears to be stated age is alert, directable, and attempts to cooperate. Patient appears to have fair hygiene and grooming. Longer hair, shaved around the bottom. Tattoos, and dressed casually Behavior: Patient is seated without any agitated behavior, more cooperative today and future oriented Speech: Patient's speech is fluent and nonpressured Mood/Affect: Patient reports their mood is pretty good, affect is congruent and mildly improving Suicidality/Homicidality: Patient denies homicidal ideation. Denies suicidal ideations, no intent or plan Perceptions: Patient denies visual hallucinations and denies auditory hallucinations Though content/process: There is no evidence of any delusional thought content and thought process is linear and goal-directed more future oriented today Memory and concentration: AOX3, grossly intact for the purposes of this session Judgment and insight: improving IMPRESSIONS: schizoaffective disorder, bipolar type nicotine dependance alcohol use disorder PLAN: -Patient is admitted under involuntary status to [facility]HU for stabilization of psychiatric symptoms and safety. -Medications : trazodone 200mg qhs for sleep. Zoloft 50mg daily depression/anx iety. Invega Sustenna 234mg IM given on 06/04, will give 156mg IM today on 06/08, then monthly, maintenance dose of 117mg to be given on 07/06 at [facility] -Ativan and Haldol PRN for agitation/aggression -thiamine, MVM for etoh use -NRT - nicotine patch -SW on board for discharge planning. Encourage patient to participate in groups to work on coping skills. Patient is interested in going to rehab, awaiting approval. Patient deferred with civil litigation attorney on 06/03. Likely d/c tomorrow back to his mother's house, after second dose of SCHAEFFER today
[2024-06-08] MEDS: PALIPERIDONE IM 156 MG/ML SYG IM ONE (17:53)
[2024-06-09 07:10] VITALS: BP 121/69; PULSE 80; TEMP 98.2
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
== END 2024-06-09 10:24 | disposition home or self-care (01) | DRG 750 ==
LOC: EC 18:00 → SUPCPDRO 18:00 → 3MHU 06-02 00:15
PROVIDERS: ADMIT Psychiatry & Neurology Psychiatry; ATTEND Psychiatry & Neurology Psychiatry
DX: F25.0 Schizoaffective disorder, bipolar type (principal); F10.10 Alcohol abuse, uncomplicated; F11.10 Opioid abuse, uncomplicated; F12.10 Cannabis abuse, uncomplicated; F14.10 Cocaine abuse, uncomplicated; F17.290 Nicotine dependence, other tobacco product, uncomplicated; F41.9 Anxiety disorder, unspecified; R45.850 Homicidal ideations; F90.9 Attention-deficit hyperactivity disorder, unspecified type; R45.851 Suicidal ideations; R56.9 Unspecified convulsions; Z79.84 Long term (current) use of oral hypoglycemic drugs; Z91.148 Patient's other noncompliance with medication regimen for other reason; Z91.199 Patient's noncompliance with other medical treatment and regimen due to unspecified reason; Z71.41 Alcohol abuse counseling and surveillance of alcoholic; Z71.51 Drug abuse counseling and surveillance of drug abuser; Z28.310 Unvaccinated for COVID-19; Z28.21 Immunization not carried out because of patient refusal; Z56.0 Unemployment, unspecified; Z65.3 Problems related to other legal circumstances
CPT/HCPCS: 80053; 80061; 80076; 80306; 81001; 82075; 83036; 84443; 85025; 87636; 99285

== ENCOUNTER 2024-08-10 15:10 | Inpatient (IN) | payer MEDICAID, OTHER ==
--- NOTE | 2024-08-10 15:42 | ED ---
General Adult HPI - General Chief complaint: Psychiatric Symptoms Stated complaint: suicidal Time Seen by Provider: 08/10/24 15:16 Source: patient Mode of arrival: ambulatory Limitations: no limitations - History of Present Illness Initial comments: Dictation was produced using [employer] dictation software. please excuse any grammatical, word or spelling errors. Chief Complaint: 18-year-old male with suicidal ideation History of Present Illness: Patient 18-year-old male presents to the emergency department for suicidal ideation. Patient states a week ago he had a noose prepared because he was contemplating on hanging himself. States that his friend intervened before he could attempt anything. States that he has been suicidal for several days. Denies any medical plaints at the bedside. Denies any visual auditory hallucinations. The ROS documented in this emergency department record has been reviewed and confirmed by me. Those systems with pertinent positive or negative responses have been documented in the HPI. All other systems are other negative and/or noncontributory. - Related Data Previous Rx's Medication Instructions Recorded Folic Acid 1 mg PO DAILY 30 Days #30 tab 06/09/24 Melatonin 10 mg PO HS 30 Days #30 ml 06/09/24 Multivitamins, Thera [Multivitamin 1 each PO DAILY 30 Days #30 tab 06/09/24 (formulary)] Nicotine 14Mg/24Hr Patch [Habitrol] 1 patch TRANSDERM DAILY 14 Days 06/09/24 #14 patch Paliperidone Palmitate [Invega 117 mg IM QMONTHLY #1 each 06/09/24 Sustenna] Sertraline [Zoloft] 50 mg PO DAILY 30 Days #30 tab 06/09/24 Thiamine [Vitamin B-1] 100 mg PO DAILY 30 Days #30 tab 06/09/24 metFORMIN HCL [Glucophage] 500 mg PO W/BRKFST 30 Days #30 tab 06/09/24 traZODone HCL 200 mg PO HS 30 Days #60 tablet 06/09/24 Allergies Allergy/AdvReac Type Severity Reaction Status Date / Time No Known Allergies Allergy Verified 06/01/24 18:06 Review of Systems ROS Statement: Those systems with pertinent positive or pertinent negative responses have been documented in the HPI. ROS Other: All systems not noted in ROS Statement are negative. Past Medical History Past Medical History: No Reported History History of Any Multi-Drug Resistant Organisms: None Reported Past Surgical History: No Surgical Hx Reported Past Anesthesia/Blood Transfusion Reactions: No Reported Reaction Past Psychological History: ADD/ADHD, Bipolar, Depression, Schizoaffective Disorder Smoking Status: Current every day smoker, Vaper Past Alcohol Use History: Daily, Heavy Past Drug Use History: Cocaine, Heroin, Marijuana, Methamphetamine, Opiates, Prescription Drug Abuse - Past Family History Father Family Medical History: Hypertension General Exam - General Exam Comments Initial Comments: General: Well-appearing, nontoxic, no acute distress. Head: Normocephalic, atraumatic Eyes: PERRLA, EOMI ENT: Airway patent Chest: Nonlabored breathing Skin: No visual rash, normal skin tone Neuro: Alert and oriented 3 Musculoskeletal: No gross abnormalities Limitations: no limitations Course Vital Signs 08/10/24 15:12 Temperature 72 F L Pulse Rate 72 Respiratory 18 Rate Blood Pressure 106/65 O2 Sat by Pulse 98 Oximetry Medical Decision Making - Medical Decision Making Was pt. sent in by a medical professional or institution (, PA, FASHION SUPERVISOR, urgent care, hospital, or correction...) When possible be specific @ -No Did you speak to anyone other than the patient for history (EMS, parent, family, police, friend...)? What history was obtained from this source @ -No Did you review nursing and triage notes (agree or disagree)? Why? @ -I reviewed and agree with nursing and triage notes Were old charts reviewed (outside hosp., previous admission, EMS record, old EKG, old radiological studies, urgent care reports/EKG's, correction records)? Report findings @ -No old charts were reviewed Differential Diagnosis (chest pain, altered mental status, abdominal pain women, abdominal pain men, vaginal bleeding, musculoskeletal, weakness, fever, dyspnea, syncope, headache, dizziness, GI bleed, back pain, seizure, CVA, palpatations, mental health)? @ -Differential Mental Health: Depression, anxiety, bipolar, psychosis, schizophrenia, borderline personality, situational depression, adjustment disorder, behavioral disorder, brain tumor, malingering, substance abuse, encephalopathy, medication reaction, dementia, hypothyroidism, degenerative neurologic disorder, lupus.... This is not meant to be all-inclusive list EKG interpreted by me (3pts min.). @ -None done X-rays interpreted by me (1pt min.). @ -None done CT interpreted by me (1pt min.). @ -None done U/S interpreted by me (1pt. min.). @ -None done What testing was considered but not performed or refused? (CT, X-rays, U/S, labs)? Why? @ -None What meds were considered but not given or refused? Why? @ -None Was smoking cessation discussed for >3mins.? @ -No Were there social determinants of health that impacted care today? How? (Homelessness, low income, unemployed, alcoholism, drug addiction, transportation, low edu. Level, literacy, decrease access to med. care, prison, rehab)? @ -No Was there de-escalation of care discussed even if they declined (Discuss DNR or withdrawal of care, Hospice)? DNR status @ -No What co-morbidities impacted this encounter? (DM, HTN, Smoking, COPD, CAD, Cancer, CVA, ARF, Chemo, Hep., AIDS, mental health diagnosis, sleep apnea, morbid obesity)? @ -Psychiatric illness Was patient admitted / discharged? Hospital course, mention meds given and route, prescriptions, significant lab abnormalities, going to OR and other pertinent info. @ -18-year-old male presents emergency department for suicidal ideation. Vital signs stable. Physical examination is benign. Patient has no medical complaints. Patient medically cleared for EPS evaluation. Will be admitted to inpatient psych for EPS recommendations. Patient signing in voluntarily. Did you discuss the management of the patient with other professionals (professionals i.e. , PA, FASHION SUPERVISOR, lab, RT, psych nurse, social welfare administrator, metal burnisher, teacher, revenue officer, special education case manager)? Give summary @ -No Was critical care preformed (if so, how long)? @ -No Undiagnosed new problem with uncertain prognosis? @ -No Drug Therapy requiring intensive monitoring for toxicity (Heparin, Nitro, Insuli n, Cardizem)? @ -No Were any procedures done? @ -No Diagnosis/symptom? Acute, or Chronic, or Acute on Chronic? Uncomplicated (without systemic symptoms) or Complicated (systemic symptoms)? @ -Suicidal ideation Side effects of treatment? @ -No Exacerbation, Progression, or Severe Exacerbation? @ -No Poses a threat to life or bodily function? How? (Chest pain, USA, SC, pneumonia, PE, COPD, DKA, ARF, appy, cholecystitis, CVA, Diverticulitis, Homicidal, Suicidal, threat to staff... and all critical care pts) @ -yes Disposition Clinical Impression: Suicidal ideations Disposition: ADMITTED IP TO THIS [facility] Referrals: None,Stated [Primary Care Provider] - 1-2 days Decision Time: 15:42
[2024-08-10 17:35] LABS: Appearance,Urine Clear (Clear); Bilirubin,Urine Negative (Negative); Blood,Urine Negative (Negative); Color,Urine Yellow; Glucose,Urine (UA) Negative (Negative); Ketones,Urine Negative (Negative); Leukocyte Esterase,Urine Trace (Negative); Mucus,Urine Occasional /hpf; Nitrite,Urine Negative (Negative); Protein,Urine Negative (Negative); RBC,Urine 1 /hpf (0-5); Specific Gravity,Urine 1.024 (1.001-1.035); Squamous Epithelial Cell,Urine <1 /hpf (0-4); WBC,Urine 2 /hpf (0-5)
[2024-08-10 17:45] LABS: Amphetamine Screen,Urine Not Detected (NotDetected); Barbiturate Screen,Urine Not Detected (NotDetected); Benzodiazepines Screen,Urine Not Detected (NotDetected); Cocaine Screen,Urine Not Detected (NotDetected); Methadone Screen, Urine Not Detected (NotDetected); Opiate Screen,Urine Not Detected (NotDetected); Oxycodone Screen, Urine Not Detected (NotDetected); Phencyclidine Screen,Urine Not Detected (NotDetected); Tricyclic Antidepressant,Urine Not Detected (NotDetected); Urn Cannabinoid Scrn Detected (NotDetected)
[2024-08-10] MEDS ORDERED: ACETAMINOPHEN TAB 325 MG TAB PO PRN (19:22)
[2024-08-10] MEDS ORDERED: MAG HYDROX/AL HYDROX/SIMETH 355 ML BOTTLE PO PRN (19:22)
[2024-08-10] MEDS ORDERED: IBUPROFEN 600 MG TAB PO PRN (19:22)
[2024-08-10] MEDS ORDERED: MAGNESIUM HYDROXIDE 2,400 MG/30 ML CUP PO PRN (19:22)
[2024-08-10] MEDS ORDERED: haloperidoL 5 MG TAB PO PRN (19:22)
[2024-08-10] MEDS: MELATONIN 5 MG TABLET PO SCH (21:15)
[2024-08-10] MEDS: traZODone HCL 100 MG TAB PO SCH (21:15)
[2024-08-11] MEDS: NICOTINE 14MG/24HR PATCH TRANSDERM SCH (06:12)
[2024-08-11 08:07] LABS: Basophils % (A) 0 %; Eosinophils % (A) 0 %; HCT 46.6 % (39.0-53.0); HGB 16.9 gm/dL (13.0-17.5); Lymphocytes # (A) 1.7 k/uL (1.0-4.8); Lymphocytes % (A) 15 %; MCH 29.1 pg (25.0-35.0); MCHC 36.3 g/dL (31.0-37.0); MCV 80.1 fL (80.0-100.0); Mean Platelet Volume 7.3; Monocytes # (A) 0.6 k/uL (0-1.0); Monocytes % (A) 5 %; Neutrophils # (A) 8.8 k/uL (1.3-7.7); Neutrophils % (A) 78 %; Platelet Count 261 k/uL (150-450); RBC 5.82 m/uL (4.30-5.90); RDW 14.1 % (11.5-15.5); WBC 11.3 k/uL (4.0-11.0)
[2024-08-11 08:39] LABS: ALT 19 U/L (4-49); AST 19 U/L (17-59); African American GFR (CKD) >90 (>60 ml/min/1.73 sqM); Albumin 4.7 g/dL (3.5-5.0); Alkaline Phosphatase 95 U/L (38-126); Anion Gap 7 mmol/L; Bilirubin, Delta 0.1 mg/dL (0.0-0.2); Blood Urea Nitrogen 12 mg/dL (9-20); Calcium 9.9 mg/dL (8.4-10.2); Carbon Dioxide 27 mmol/L (22-30); Chloride 103 mmol/L (98-107); Glucose 94 mg/dL (74-99); Non-African American GFR(CKD) 86 (>60 ml/min/1.73 sqM); Potassium 4.5 mmol/L (3.5-5.1); Sodium 137 mmol/L (137-145); Total Bilirubin 1.1 mg/dL (0.2-1.3); Total Protein 7.9 g/dL (6.3-8.2)
[2024-08-11] MEDS: metFORMIN 500 MG TAB PO SCH (11:32)
[2024-08-11] MEDS: THIAMINE 100 MG TAB PO SCH (11:33)
[2024-08-11] MEDS: FOLIC ACID 1 MG TAB PO SCH (11:33)
[2024-08-11] MEDS: SERTRALINE 50 MG TAB PO SCH (11:33)
[2024-08-11] MEDS: MULTIVITAMINS, THERA 1 EACH TAB PO SCH (11:33)
--- NOTE | 2024-08-11 12:10 | P.HP ---
Psychiatric H&P - . H&P Date: 08/11/24 History & Physical: Allergies Allergy/AdvReac Type Severity Reaction Status Date / Time No Known Allergies Allergy Verified 08/10/24 17:19 Vital Signs Temp 97.8 F 08/11/24 07:09 Pulse 99 08/11/24 07:09 Resp 16 08/11/24 07:09 BP 85/57 08/11/24 07:09 Pulse Ox 98 08/11/24 07:09 FiO2 Intake & Output 08/10/24 08/11/24 08/11/24 18:59 06:59 18:59 Weight 73.437 kg 73.437 kg Laboratory Last Values WBC 11.3 k/uL (4.0-11.0) H 08/11/24 07:48 RBC 5.82 m/uL (4.30-5.90) 08/11/24 07:48 Hgb 16.9 gm/dL (13.0-17.5) 08/11/24 07:48 Hct 46.6 % (39.0-53.0) 08/11/24 07:48 MCV 80.1 fL (80.0-100.0) 08/11/24 07:48 MCH 29.1 pg (25.0-35.0) 08/11/24 07:48 MCHC 36.3 g/dL (31.0-37.0) 08/11/24 07:48 RDW 14.1 % (11.5-15.5) 08/11/24 07:48 Plt Count 261 k/uL (150-450) 08/11/24 07:48 MPV 7.3 08/11/24 07:48 Neutrophils % 78 % 08/11/24 07:48 Lymphocytes % 15 % 08/11/24 07:48 Monocytes % 5 % 08/11/24 07:48 Eosinophils % 0 % 08/11/24 07:48 Basophils % 0 % 08/11/24 07:48 Neutrophils # 8.8 k/uL (1.3-7.7) H 08/11/24 07:48 Lymphocytes # 1.7 k/uL (1.0-4.8) 08/11/24 07:48 Monocytes # 0.6 k/uL (0-1.0) 08/11/24 07:48 Eosinophils # 0.0 k/uL (0-0.7) 08/11/24 07:48 Basophils # 0.0 k/uL (0-0.2) 08/11/24 07:48 Sodium 137 mmol/L (137-145) 08/11/24 07:48 Potassium 4.5 mmol/L (3.5-5.1) 08/11/24 07:48 Chloride 103 mmol/L (98-107) 08/11/24 07:48 Carbon Dioxide 27 mmol/L (22-30) 08/11/24 07:48 Anion Gap 7 mmol/L 08/11/24 07:48 BUN 12 mg/dL (9-20) 08/11/24 07:48 Creatinine 1.21 mg/dL (0.66-1.25) 08/11/24 07:48 Est GFR (CKD-EPI)AfAm >90 (>60 ml/min/1.73 sqM) 08/11/24 07:48 Est GFR (CKD-EPI)NonAf 86 (>60 ml/min/1.73 sqM) 08/11/24 07:48 Glucose 94 mg/dL (74-99) 08/11/24 07:48 Calcium 9.9 mg/dL (8.4-10.2) 08/11/24 07:48 Total Bilirubin 1.1 mg/dL (0.2-1.3) 08/11/24 07:48 Conjugated Bilirubin 0.0 mg/dL (0.0-0.3) 08/11/24 07:48 Unconjugated Bilirubin 1.0 mg/dL (0.0-1.1) 08/11/24 07:48 Delta Bilirubin 0.1 mg/dL (0.0-0.2) 08/11/24 07:48 AST 19 U/L (17-59) 08/11/24 07:48 ALT 19 U/L (4-49) 08/11/24 07:48 Alkaline Phosphatase 95 U/L (38-126) 08/11/24 07:48 Total Protein 7.9 g/dL (6.3-8.2) 08/11/24 07:48 Albumin 4.7 g/dL (3.5-5.0) 08/11/24 07:48 TSH 0.228 mIU/L (0.465-4.680) L 08/11/24 07:48 Urine Color Yellow 08/10/24 17:09 Urine Appearance Clear (Clear) 08/10/24 17:09 Urine pH 6.0 (5.0-8.0) 08/10/24 17:09 Ur Specific [place] 1.024 (1.001-1.035) 08/10/24 17:09 Urine Protein Negative (Negative) 08/10/24 17:09 Urine Glucose (UA) Negative (Negative) 08/10/24 17:09 Urine Ketones Negative (Negative) 08/10/24 17:09 Urine Blood Negative (Negative) 08/10/24 17:09 Urine Nitrite Negative (Negative) 08/10/24 17:09 Urine Bilirubin Negative (Negative) 08/10/24 17:09 Urine Urobilinogen 2.0 mg/dL (<2.0) 08/10/24 17:09 Ur Leukocyte Esterase Trace (Negative) H 08/10/24 17:09 Urine RBC 1 /hpf (0-5) 08/10/24 17:09 Urine WBC 2 /hpf (0-5) 08/10/24 17:09 Ur Squamous Epith Cells <1 /hpf (0-4) 08/10/24 17:09 Urine Mucus Occasional /hpf (None) H 08/10/24 17:09 Urine Opiates Screen Not Detected (NotDetected) 08/10/24 17:09 Ur Oxycodone Screen Not Detected (NotDetected) 08/10/24 17:09 Urine Methadone Screen Not Detected (NotDetected) 08/10/24 17:09 Ur Barbiturates Screen Not Detected (NotDetected) 08/10/24 17:09 U Tricyclic Antidepress Not Detected (NotDetected) 08/10/24 17:09 Ur Phencyclidine Scrn Not Detected (NotDetected) 08/10/24 17:09 Ur Amphetamines Screen Not Detected (NotDetected) 08/10/24 17:09 U Methamphetamines Scrn Not Detected (NotDetected) 08/10/24 17:09 U Benzodiazepines Scrn Not Detected (NotDetected) 08/10/24 17:09 Urine Cocaine Screen Not Detected (NotDetected) 08/10/24 17:09 U Marijuana (THC) Screen Detected (NotDetected) H 08/10/24 17:09 SARS-CoV-2 (PCR) Not Detected (Not Detectd) 08/10/24 17:09 08/11/24 12:03 IDENTIFYING DATA: Patient is a 18-year-old male, lives with his grandmother who is also his legal guardian HPI: Patient presented to the hospital yesterday and was evaluated for suicidal and homicidal ideations. Patient has a history of schizoaffective disorder and polysubstance abuse has been admitted several times in the past the mental health unit. Currently follows up at [facility] with nurse practitioner. Patient is currently on a long-acting injection and also on a active deferral. Patient was seen today and agreeable to speak to publicity writer. He states that he began feeling suicidal and homicidal yesterday. States that "I do not know what happened" and was fairly evasive initially about what the circumstances were. He states that he was pissed off at one of his friend's house. He claims that he got into argument with one of his friend about a girl that he was dating. He states that he felt like he wanted to punch him. He went back home told his grandmother about it and she brought him to the hospital. She is his legal guardian. He states that he was also having suicidal thoughts about wanting to hang himself. He claims that he still having suicidal thoughts at this time however no specific plan. He claims that he is fairly irritable, claims that his medications need to be adjusted or increased. He states that he is hearing voic es saying negative things towards him telling him to harm others. He claims that he is also seeing "demonic figures". States that his sleep and appetite are fair. Claims that he has been using drugs specifically drinking alcohol regularly, denies any withdrawal symptoms at this time. Claims that he has been smoking marijuana daily, using cigarettes and also abusing Percocets occasionally. PAST PSYCHIATRIC HISTORY: Patient is seen at [facility]. 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 He has a history of numerous psychiatric hospitalizations, last psychiatric hospitalization was in late May 2024. Patient is currently on Invega Sustenna and Zoloft. Has been in juvenile half-way multiple times for probation violations which she identifies as due to missing curfew. He is open with [facility]. The patient reports "47" prior attempts at suicide, reports February 2024 he made a noose [place] the [place] and reports the rope snapped. PMH:As per ER note ALLERGIES: as per EMR CHEMICAL DEPENDENCY HISTORY: as per HPI FAMILY PSYCHIATRIC/SUBSTANCE USE HISTORY: He patient reports a strong family history of mental illness. The patient states that his mother was bipolar. He also reports that his maternal grandmother used crack cocaine. SOCIAL HISTORY: Patient was born and raised in [place], [place]. Parents never . Raised by his mother in [place] until 2-3 years, removed from the home by CPS and adopted by his grandmother. Unemployed, was on SSI. Has several past legal issues. He currently lives with his grandmother who is his guardian at her house. MENTAL STATUS EXAM: General Appearance: Patient appears to be thin, stated age is alert, somewhat irritable today, attempts to cooperate. Patient appears to have fair hygiene and grooming. Longer hair, shaved around the bottom. Tattoos, and dressed casually. Behavior: Patient is seated without any agitated behavior. Irritable, evasive at times. Speech: Patient's speech is fluent and nonpressured. Hesitant Mood/Affect: Patient reports their mood is [depressed and angry, affect is congruent and constricted. Suicidality/Homicidality: Patient endorses homicidal ideation. Admits to passi ve suicidal ideations, no intent or plan Perceptions: Patient admits to visual hallucinations and admits to auditory hallucinations Though content/process: There is no evidence of any delusional thought content and thought process is linear and goal-directed. Focused on his symptoms, evasive at times Memory and concentration: AOX3, grossly intact for the purposes of this session. Can spell "WORLD" backwards Judgment and insight: Poor/impulsive STRENGTHS/WEAKNESSES: strength is that patient is resilient. Weakness is that patient has poor judgment and is impulsive INTELLECT: Average IMPRESSIONS: schizoaffective disorder, bipolar type nicotine dependance alcohol use disorder Cannabis use disorder Opiate abuse PLAN: -Patient is admitted under voluntary status to MHU for stabilization of psychiatric symptoms and safety. Is on an active deferral. Patient has signed adult voluntary form and has signed medication consent and is placed in patient's chart. -Medications : Patient is currently receiving Invega Sustenna 117 mg IM last dose was given on 08/04, next dose will be due on 09/03. This dose will likely need to be increased to 156 mg IM. Increased Zoloft to 100 mg daily for mood/anxiety, Depakote 250 mg twice daily for mood stabilization/aggression. Trazodone 200 mg nightly for insomnia/mood. -Ativan and Haldol PRN for agitation/aggression -thiamine, MVM for etoh use -CIWA protocol with Ativan PRN for ETOH withdrawal -Patient was counselled on substance abuse and desired to cut back on use -Patient was informed of the risks, benefits and side effects of the medication [and patient verbally consented to taking the medications. -Internal Medicine consult to perform medical evaluation and physical. -NRT - nicotine patch - on board for discharge planning. Encourage patient to participate in groups to work on coping skills. 08/11/24 12:09
[2024-08-11] MEDS: DIVALPROEX ER 250 MG TAB.ER.24H PO SCH (12:54)
[2024-08-11] MEDS: SERTRALINE 50 MG TAB PO STA (12:54)
--- NOTE | 2024-08-12 01:12 | P.CONS ---
History of Present Illness - Reason for Consult Consult date: 08/12/24 - History of Present Illness The patient is a 18-year-old male with a PMH of tobacco and marijuana abuse and depression, and alcohol abuse who presents to the emergency room with complaints of depression and suicidal ideation. The patient was admitted to the mental health unit where he was seen and evaluated. Patient notes that he has been struggling with his alcohol use for the past several months now, drinking a half a liter of hard liquor daily. He denied any additional complaints. Does report recreational marijuana use and smoking half pack of cigarettes daily. Denied experiencing any history of alcohol withdrawal. Also denied alcohol withdrawal seizures. Denied chest discomfort, shortness of, fever, chills, cough, nausea, vomiting, abdominal pain, diarrhea. Review of systems: Pertinent positives and negatives as discussed in HPI, a complete review of systems was performed and all other systems are negative. Physical examination: General: non toxic, no distress, appears at stated age, normal weight Derm: no unusual rashes/lesions, no unusual ecchymoses, warm, dry Head: atraumatic, normocephalic, symmetric Eyes: EOMI, no lid lag, anicteric sclera ENT: Nose and ears atraumatic, no thrush, no pharyngeal erythema Neck: trachea midline, supple Mouth: no lip lesion, mucus membranes moist Cardiovascular: S1S2 reg, no murmur, no edema Lungs: CTA bilateral, no rhonchi, no rales , no accessory muscle use Abdominal: soft, nontender to palpation, no guarding Ext: no gross muscle atrophy, no contractures, Neuro: No gross focal neuro deficits noted Psych: Alert, oriented, appropriate affect Assessment: Alcohol abuse Marijuana and tobacco abuse Depression and suicidal ideation Leukocytosis, likely secondary to acute stressor with no signs of active infection at this time Low TSH Data Review: Laboratory evaluation revealed wbc count 11.3 and TSH 0.228 with UTox positive for marijuana. Plan: Monitor for signs of alcohol withdrawal Advised on importance of cessation of marijuana and EtOH abuse Monitor CBC Check T3 and T4 levels Defer management of depression and suicidal ideation to primary psychiatry service Thank you for allowing us to participate in the care of this patient. We will follow peripherally. Do not hesitate to contact us with questions. Someone can be reached from the [facility] hospitalist group at all hours of the day at [phone]. Past Medical History Past Medical History: No Reported History History of Any Multi-Drug Resistant Organisms: None Reported Past Surgical History: No Surgical Hx Reported Past Anesthesia/Blood Transfusion Reactions: No Reported Reaction Past Psychological History: ADD/ADHD, Bipolar, Depression, Schizoaffective Disorder Smoking Status: Current every day smoker, Vaper Past Alcohol Use History: Daily, Heavy Past Drug Use History: Cocaine, Heroin, Marijuana, Methamphetamine, Opiates, Prescription Drug Abuse - Past Family History Father Family Medical History: Hypertension Medications and Allergies Home Medications Medication Instructions Recorded Confirmed Type Folic Acid 1 mg PO DAILY 30 Days #30 tab 06/09/24 08/10/24 Rx Melatonin 10 mg PO HS 30 Days #30 ml 06/09/24 08/10/24 Rx Nicotine 14Mg/24Hr Patch [Habitrol] 1 patch TRANSDERM DAILY 14 Days 06/09/24 08/10/24 Rx #14 patch Sertraline [Zoloft] 50 mg PO DAILY 30 Days #30 tab 06/09/24 08/10/24 Rx Thiamine [Vitamin B-1] 100 mg PO DAILY 30 Days #30 tab 06/09/24 08/10/24 Rx metFORMIN HCL [Glucophage] 500 mg PO W/BRKFST 30 Days #30 tab 06/09/24 08/10/24 Rx traZODone HCL 200 mg PO HS 30 Days #60 tablet 06/09/24 08/10/24 Rx Multivitamins, Thera [Multivitamin 1 tab PO DAILY 08/10/24 08/10/24 History (formulary)] Paliperidone Palmitate [Invega 117 mg IM Q28D 08/10/24 08/10/24 History Sustenna] Allergies Allergy/AdvReac Type Severity Reaction Status Date / Time No Known Allergies Allergy Verified 08/10/24 17:19 Physical Exam Vitals: Vital Signs Temp Pulse Resp BP Pulse Ox 08/11/24 07:09 97.8 F 99 16 85/57 98 Results CBC & Chem 7: 08/11/24 07:48 08/11/24 07:48 Labs: Abnormal Lab Results - Last 24 Hours (Table) 08/11/24 08/11/24 Range/Units 07:48 07:48 WBC 11.3 H (4.0-11.0) k/uL Neutrophils # 8.8 H (1.3-7.7) k/uL TSH 0.228 L (0.465-4.680) mIU/L
[2024-08-12] MEDS: SERTRALINE 100 MG TAB PO SCH (08:16)
[2024-08-12] MEDS: LORazepam 1 MG TAB PO PRN (08:17)
--- NOTE | 2024-08-12 12:03 | P.PN ---
Progress Note - Text Progress Note Date: 08/12/24 Interval History: Patient was seen taking part in group today agreeable to speak to sports writer in the office. He claims that he is feeling a bit calmer today, less irritable or agitated. States that he still hearing voices at times. His blood pressure was fairly low however does not know why. He was encouraged to drink fluids today he was agreeable to do that. States that he slept a bit better last night. Not reporting any side effects at this time. Claims that he still having some mild anxiety. Denying any depression. Claims that he is not having any suicidal thoughts today however is still hearing voices, denying any visual hallucinations. MENTAL STATUS EXAM: General Appearance: Patient appears to be thin, stated age is alert, not irritable today, attempts to cooperate. Patient appears to have fair hygiene and grooming. Longer hair, shaved around the bottom. Tattoos, and dressed casually. Behavior: Patient is seated without any agitated behavior. Not irritable today, more cooperative Speech: Patient's speech is fluent and nonpressured. Hesitant, improving mildly Mood/Affect: Patient reports their mood is a bit anxious, affect is congruent and constricted. Improving mildly Suicidality/Homicidality: Patient endorses homicidal ideation. Denies any e suicidal ideations, no intent or plan Perceptions: Patient admits to visual hallucinations and admits to auditory hallucinations, improving mildly Though content/process: There is no evidence of any delusional thought content and thought process is linear and goal-directed. Focused on his symptoms, more cooperative today Memory and concentration: AOX3, grossly intact for the purposes of this session Judgment and insight: Poor/impulsive, improving mildly IMPRESSIONS: schizoaffective disorder, bipolar type nicotine dependance alcohol use disorder Cannabis use disorder Opiate abuse PLAN: -Patient is admitted under voluntary status to MHU for stabilization of psychiatric symptoms and safety. Is on an active deferral. Patient has signed adult voluntary form and has signed medication consent and is placed in patient's chart. -Medications : Patient is currently receiving Invega Sustenna 117 mg IM last dose was given on 08/04, next dose will be due on 09/03. please consider adding a low dose of invega PO tomorrow or through the weekend if patient is still having symptoms and his BP is improving. his Invega sustenna dose most likely will need to be increased to 156 mg IM qmonthly. Zoloft 100 mg daily for mood/anxiety, Depakote 250 mg twice daily for mood stabilization/aggression. Trazodone 200 mg nightly for insomnia/mood. -Ativan and Haldol PRN for agitation/aggression -thiamine, MVM for etoh use -CIWA protocol with Ativan PRN for ETOH withdrawal -NRT - nicotine patch -SW on board for discharge planning. Encourage patient to participate in groups to work on coping skills. hopeful for discharge next week if he is improving
[2024-08-12 13:26] LABS: HCT 46.7 % (39.0-53.0); HGB 16.4 gm/dL (13.0-17.5); MCH 28.7 pg (25.0-35.0); MCHC 35.1 g/dL (31.0-37.0); MCV 81.9 fL (80.0-100.0); Mean Platelet Volume 7.2; Platelet Count 265 k/uL (150-450); RDW 13.3 % (11.5-15.5); WBC 13.1 k/uL (4.0-11.0)
--- NOTE | 2024-08-13 13:43 | P.PN ---
Progress Note - Text Interval History: Patient was seen in the hallway and was directable and agreeable to speak with sign writer hand in the office. He reports his mood as "decent" today and feels that it has generally improved since he came to the hospital. He describes experiencing chronic suicidal ideation that is always "there" but he denies identified method, intent, or plan for harming himself. This is an improvement from when he came into the hospital. He denies any desire to harm himself and feels that the thoughts that come into his brain at times are not as intense or commanding as they can be. He continues to experience auditory hallucinations that are frequent. They sometimes command him to do things that he doesn't want to do; he doesn't act on these commands. We discussed the potential for adding oral Invega to his regimen with the goal of increasing the dose of his monthly injection, but this is contingent on blood pressure being more consistently normal. He has been experiencing some dizziness. Encouraged him to continue hydrating well; he endorses eating and drinking fluids. Since admission he has reflected some on his alcohol use prior to coming into the hospital; he reports having consumed at least 1/5 a day of alcohol in an effort to "numb the pain" that he experiences emotionally. In addition to this he shared that he has recently taken Percocet, Xanax, and at times ecstasy to "get high". He is hoping to go to rehab after this hospitalization; he has never been before and would like to pursue this before he tries medication to help curb his drinking. He denies homicidal ideation. Patient denies any side effects from the medications and has been compliant with meds. Review of nursing notes reflects recent CIWA scores as 4, 2, 0, 0, 0 over the last 24 hours. Mental Status Exam: General Appearance: Patient appears to be stated age is alert, directable, and cooperative. Hair is blond and brown, currently in multiple iman. Wearing earrings. Behavior: Patient is calmly seated without any agitated behavior. Speech: Patient's speech is fluent and nonpressured. Mood/Affect: Mood is "decent", affect is congruent and constricted. Suicidality/Homicidality: Patient denies having any homicidal ideation, intent, or plan. Patient reports chronic suicidal ideation but denies identified method, intent, or plan. Perceptions: Patient denies any visual hallucinations. Ongoing auditory hallucinations. Though content/process: There is no evidence of any overtly delusional thought content and thought process is linear and goal-directed. Memory and concentration: AOX3, grossly intact for the purposes of this session Judgment and insight: Improving mildly ASSESSMENT: Schizoaffective disorder, bipolar type Nicotine dependance Alcohol use disorder Cannabis use disorder Opiate abuse PLAN: -Patient is admitted under voluntary status to MHU for stabilization of psychiatric symptoms and safety. Is on an active deferral. Patient has signed adult voluntary form and has signed medication consent and is placed in patient's chart. -Medications: - Patient is currently receiving Invega Sustenna 117 mg IM last dose was given on 08/04, next dose will be due on 09/03. His Invega sustenna dose most likely will need to be increased to 156 mg IM Qmonthly. - Will consider adding a low dose of invega PO if patient is still having symptoms and his BP is improving. Will plan to start Gatorade with meals to optimize hydration status and hopefully improve blood pressure. - Continue Zoloft 100 mg daily for mood/anxiety - Continue Depakote 250 mg twice daily for mood stabilization/aggression. - Continue Trazodone 200 mg nightly for insomnia/mood. - Continue thiamine, MVM for etoh use -Ativan and Haldol PRN for agitation/aggression -CIWA protocol with Ativan PRN for ETOH withdrawal -NRT - nicotine patch -SW on board for discharge planning. Encourage patient to participate in groups to work on coping skills. Hopeful for discharge next week if he is improving. Patient is newly interested in pursuing rehab after this admission.
[2024-08-14] MEDS: HALOPERIDOL LACTATE 5 MG/ML 1 ML VIAL IM PRN (15:41)
[2024-08-14] MEDS: LORazepam 2 MG/ML INJ IM PRN (15:41)
--- NOTE | 2024-08-14 16:28 | XR ---
EXAMINATION TYPE: XR hand complete RT DATE OF EXAM: 08/14/2024 4:21 PM COMPARISON: None available. CLINICAL INDICATION: Male, 18 years old with history of right hand injury; [facility] TECHNIQUE: XR hand complete RT Frontal, lateral and oblique views were obtained. FINDINGS: Normal alignment of the visualized joints. No acute osseous pathology is identified. No e vidence of soft tissue swelling. No significant degeneration IMPRESSION: No acute osseous pathology. [facility], , 08/14/2024 4:25 PM
[2024-08-14] MEDS ORDERED: SALINE NASAL GEL 14.1 GM TUBE NASAL PRN (16:53)
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
[2024-08-14] MEDS: PALIPERIDONE 3 MG TAB.ER.24 PO SCH (21:18)
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
[2024-08-16 08:17] VITALS: RESP 18
--- NOTE | 2024-08-16 11:26 | P.PN ---
Progress Note - Text Progress Note Date: 08/16/24 Interval History: Patient was seen taking part in group today agreeable to speak to scientific technical writer in the office. Patient states that he is doing a little bit better since the weekend. Claims that he is still seeing "demonic figures" at nighttime. Claims that the voices have been calming down. Denies any other issues with his medications at this time. States that he is feeling less irritable and agitated. Claims that his mood and anxiety have been gradually improving. Claims that he is trying to go to groups participate with activities and interact with others. He was asking about potential discharge. Claims that he is not having any suicidal thoughts or any homicidal ideations. MENTAL STATUS EXAM: General Appearance: Patient appears to be thin, stated age is alert, attempts to cooperate. Patient appears to have fair hygiene and grooming. Longer hair, shaved around the bottom. Tattoos, and dressed casually. Behavior: Patient is seated without any agitated behavior. more cooperative Speech: Patient's speech is fluent and nonpressured. Hesitant, improving mildly Mood/Affect: Patient reports their mood is improving mildly, affect is congruent and constricted. Improving mildly Suicidality/Homicidality: Patient denies any homicidal ideation. Denies any e suicidal ideations, no intent or plan Perceptions: Patient admits to visual hallucinations and denies any auditory hallucinations Though content/process: There is no evidence of any delusional thought content and thought process is linear and goal-directed. Focused on his symptoms, more cooperative today Memory and concentration: AOX3, grossly intact for the purposes of this session Judgment and insight: Poor/impulsive, improving mildly IMPRESSIONS: schizoaffective disorder, bipolar type nicotine dependance alcohol use disorder Cannabis use disorder Opiate abuse PLAN: -Patient is admitted under voluntary status to MHU for stabilization of psychiatric symptoms and safety. Is on an active deferral. Patient has signed adult voluntary form and has signed medication consent and is placed in patient's chart. -Medications : Patient is currently receiving Invega Sustenna 117 mg IM last dose was given on 08/04, next dose will be due on 09/03. his Invega sustenna dose most likely will need to be increased to 234 mg IM qmonthly. Zoloft 100 mg daily for mood/anxiety, increase Depakote 500 mg daily at bedtime for mood stabilization/aggression. decrease Trazodone 100 mg nightly for insomnia/mood. increase invega po to 3 mg bid for mood stabilization/psychosis -Ativan and Haldol PRN for agitation/aggression -thiamine, MVM for etoh use -CIWA protocol with Ativan PRN for ETOH withdrawal -NRT - nicotine patch -SW on board for discharge planning. Encourage patient to participate in groups to work on coping skills. hopeful for discharge later this week if he is improving
[2024-08-16] MEDS: PALIPERIDONE 3 MG TAB.ER.24 PO SCH (12:49)
[2024-08-16] MEDS: traZODone HCL 100 MG TAB PO SCH (20:20)
[2024-08-16] MEDS: DIVALPROEX ER 500 MG TAB.ER.24H PO SCH (20:20)
--- NOTE | 2024-08-17 12:24 | P.PN ---
Progress Note - Text Progress Note Date: 08/17/24 Interval History: Patient was seen wandering the hallways today, agreeable to speak to engineering technical writer in the office. States that he is doing a bit better, has been socializing on the unit. Claims that he is no longer seeing things or hearing voices. States that he is feeling more optimistic about his medications. Claims that he is waiting on a rehab bed likely at [place]. Claims that he can go to his grandma's until then. Denies any depression or anxiety at this time. States that he is feeling less irritable and agitated. Claims that his mood and anxiety have been gradually improving. Claims that he is trying to go to groups participate with activities and interact with others. Claims that he is not having any suicidal thoughts or any homicidal ideations. MENTAL STATUS EXAM: General Appearance: Patient appears to be thin, stated age is alert, attempts to cooperate. Patient appears to have fair hygiene and grooming. Longer hair, shaved around the bottom. Tattoos, and dressed casually. Behavior: Patient is seated without any agitated behavior. more cooperative Speech: Patient's speech is fluent and nonpressured. Hesitant, improving mildly Mood/Affect: Patient reports their mood is improving mildly, affect is congruent and constricted. Improving mildly Suicidality/Homicidality: Patient denies any homicidal ideation. Denies any e suicidal ideations, no intent or plan Perceptions: Patient admits to visual hallucinations and denies any auditory hallucinations Though content/process: There is no evidence of any delusional thought content and thought process is linear and goal-directed. more cooperative today Memory and concentration: AOX3, grossly intact for the purposes of this session Judgment and insight: improving mildly IMPRESSIONS: schizoaffective disorder, bipolar type nicotine dependance alcohol use disorder Cannabis use disorder Opiate abuse PLAN: -Patient is admitted under voluntary status to MHU for stabilization of psychiatric symptoms and safety. Is on an active deferral. Patient has signed adult voluntary form and has signed medication consent and is placed in patient's chart. -Medications : Patient is currently receiving Invega Sustenna 117 mg IM last dose was given on 08/04, next dose will be due on 09/03. his Invega sustenna dose most likely will need to be increased to 234 mg IM qmonthly. Zoloft 100 mg daily for mood/anxiety, Depakote 500 mg daily at bedtime for mood stabilization/aggression. Trazodone 100 mg nightly for insomnia/mood. invega po to 3 mg bid for mood stabilization/psychosis -Ativan and Haldol PRN for agitation/aggression -thiamine, MVM for etoh use -d/c [facility] protocol -NRT - nicotine patch -SW on board for discharge planning. Encourage patient to participate in groups to work on coping skills. hopeful for discharge tomorrow to [facility] if patient is improving. currently awiaiting a rehab bed at [place]
[2024-08-18 09:19] VITALS: BP 99/67; PULSE 104; TEMP 97.3
--- NOTE | 2024-08-18 10:31 | P.DS ---
Providers Date of admission: 08/10/24 18:23 Expected date of discharge: 08/18/24 Attending physician: Adrián Taylor MD Consults: 08/10/24 19:22 Consult Physician Routine Consulting Provider: Kinza Oviedo Consult Reason/Comments: Medical H&P Do you want consulting provider notified?: Yes Primary care physician: Stated None - Discharge Diagnosis(es) (1) Schizoaffective disorder, bipolar type Current Visit: Yes Status: Acute Priority: High (2) Nicotine dependence Current Visit: Yes Status: Acute Priority: Low (3) Alcohol use disorder Current Visit: Yes Status: Acute Priority: High (4) Cannabis use disorder Current Visit: Yes Status: Acute Priority: Medium (5) Opioid abuse Current Visit: Yes Status: Acute Priority: Medium Hospital Course: Admission HPI: Admission note was completed by writer editor "Patient is a 18-year-old male, lives with his grandmother who is also his legal guardian. Patient presented to the hospital yesterday and was evaluated for suicidal and homicidal ideations. Patient has a history of schizoaffective disorder and polysubstance abuse has been admitted several times in the past the mental health unit. Currently follows up at [facility] with nurse practitioner. Patient is currently on a long- acting injection and also on a active deferral. Patient was seen today and agreeable to speak to writer editor. He states that he began feeling suicidal and homicidal yesterday. States that "I do not know what happened" and was fairly evasive initially about what the circumstances were. He states that he was pissed off at one of his friend's house. He claims that he got into argument with one of his friend about a girl that he was dating. He states that he felt like he wanted to punch him. He went back home told his grandmother about it and she brought him to the hospital. She is his legal guardian. He states that he was also having suicidal thoughts about wanting to hang himself. He claims that he still having suicidal thoughts at this time however no specific plan. He claims that he is fairly irritable, claims that his medications need to be adjusted or increased. He states that he is hearing voices saying negative things towards him telling him to harm others. He claims that he is also seeing "demonic figures". States that his sleep and appetite are fair. Claims that he has been using drugs specifically drinking alcohol regularly, denies any withdrawal symptoms at this time. Claims that he has been smoking marijuana daily, using cigarettes and also abusing Percocets occasionally." Hospital course: Upon admission to the unit patient was directable and agreeable to commence treatment and signed adult voluntary form. Patient got along well with other patients on the unit and followed unit protocol. Patient was compliant with the medications and denied any side effects throughout hospital course. Patient was started on supplemental Invega p.o. increased to dose of 3 mg twice daily for psychosis. Patient was already given Invega Sustenna 117 mg IM last dose was given on 08/04. Zoloft increased to 100 mg daily for mood/anxiety, Depakote started at 500 mg nightly for mood stabilization/aggression, trazodone 150 mg nightly for insomnia/mood. Patient spoke of his stressors and engaged in therapy both group and individual. Patient was also seen by medical team for history and physical exam. Throughout the course of the hospitalization patient gradually improved with regards to mood, anxiety, psychosis, hallucinations, sleep and returned back to their baseline level of functioning. On the day of discharge patient denied any suicidal or homicidal ideations intent or plan denied any auditory or visual hallucinations. Patient endorsed wanting to live for their health and family. The patient denied any access to guns or weapons. Patient denied any paranoia and did not endorse any delusions. Patient does have a significant history of substance abuse and was counseled on abstaining from all substances including alcohol and marijuana. Patient ended up agreeing to inpatient subtance rehab. Patient was accepted to [facility] inpatient rehab however will be discharged to his grandmother's house and awaiting intake date. patient was also counseled on the medications and need for regular compliance and was encouraged to follow-up with their outpatient appointment for mental health and also for primary care. Prior to discharge a family meeting will be arranged by social worker psychiatric to answer any questions and ensure safety upon discharge incuding making sure that guns/weapons are either removed from the home or locked away. Mental status exam: General Appearance: Patient appears to be have long hair, unshaven, stated age is alert, pleasant, and cooperative. Patient is in no acute distress and has improved hygiene and grooming Behavior: Patient is calmly seated without any agitated behavior. Speech: Patient's speech is fluent and nonpressured. Mood/Affect: Patient reports their mood is "good", affect is congruent and euthymic. Suicidality/Homicidality: Patient denies having any suicidal or homicidal ideation intent or plan. Perceptions: Patient denies any auditory or visual hallucinations. Though content/process: There is no evidence of any delusional thought content and thought process is linear and goal-directed. More future oriented Memory and concentration: AOX3, grossly intact for the purposes of this session. Can spell "WORLD" backwards correctly. Judgment and insight: Chronically poor, however has improved with guarded prognosis Impression: Schizoaffective disorder bipolar type Cannabis use disorder Opioid abuse Alcohol use disorder Nicotine dependence Plan: -Continue with discharge today as patient has improved and stabilized psychiatrically and is not currently an imminent threat to themself and/or others. Patient will remain at chronically elevated risk for harm to self and/or others due to their impulsivity and substance abuse. -Continue medications: Continue with Invega p.o. 3 mg twice daily for psychosis for 16 more days then discontinue as patient will be given higher dose of Invega Sustenna 234 mg IM on 09/03 q. monthly. Zoloft 100 mg daily for mood/anxiety, Depakote ER 500 mg nightly for mood stabilization/aggression, trazodone 150 mg nightly for insomnia/mood. -Patient was counseled on the need for medication compliance and appropriate follow-up at mental health and also primary care for medical issues. Patient verbalized understanding and agreed. -Social work to arrange for and conduct family meeting to ensure safety upon discharge and answer any questions/concerns. also to ensure safe home environment that guns/weapons are either removed from the home or locked away. Social work also to arrange for patients follow up appointments with [facility] for psychiatric care along with follow up with primary care provider. -Patient counseled on abstaining from recreational drugs and marijuana and alcohol. Was informed/educated on the adverse effects on their physical and mental health. Patient verbally agreed and understood. Patient is excepted to [facility] inpatient rehab, will be discharged to grandmother's house and await intake date. -Patient was instructed to return to the hospital or seek immediate medical care if their psychiatric or medical symptoms do worsen or reoccur. INSERT DATA FORMATS Allergies Allergy/AdvReac Type Severity Reaction Status Date / Time No Known Allergies Allergy Verified 08/10/24 17:19 Laboratory Results WBC 13.1 k/uL (4.0-11.0) H 08/12/24 13:09 RBC 5.70 m/uL (4.30-5.90) 08/12/24 13:09 Hgb 16.4 gm/dL (13.0-17.5) 08/12/24 13:09 Hct 46.7 % (39.0-53.0) 08/12/24 13:09 MCV 81.9 fL (80.0-100.0) 08/12/24 13:09 MCH 28.7 pg (25.0-35.0) 08/12/24 13:09 MCHC 35.1 g/dL (31.0-37.0) 08/12/24 13:09 RDW 13.3 % (11.5-15.5) 08/12/24 13:09 Plt Count 265 k/uL (150-450) 08/12/24 13:09 MPV 7.2 08/12/24 13:09 Neutrophils % 78 % 08/11/24 07:48 Lymphocytes % 15 % 08/11/24 07:48 Monocytes % 5 % 08/11/24 07:48 Eosinophils % 0 % 08/11/24 07:48 Basophils % 0 % 08/11/24 07:48 Neutrophils # 8.8 k/uL (1.3-7.7) H 08/11/24 07:48 Lymphocytes # 1.7 k/uL (1.0-4.8) 08/11/24 07:48 Monocytes # 0.6 k/uL (0-1.0) 08/11/24 07:48 Eosinophils # 0.0 k/uL (0-0.7) 08/11/24 07:48 Basophils # 0.0 k/uL (0-0.2) 08/11/24 07:48 Sodium 137 mmol/L (137-145) 08/11/24 07:48 Potassium 4.5 mmol/L (3.5-5.1) 08/11/24 07:48 Chloride 103 mmol/L (98-107) 08/11/24 07:48 Carbon Dioxide 27 mmol/L (22-30) 08/11/24 07:48 Anion Gap 7 mmol/L 08/11/24 07:48 BUN 12 mg/dL (9-20) 08/11/24 07:48 Creatinine 1.21 mg/dL (0.66-1.25) 08/11/24 07:48 Est GFR (CKD-EPI)AfAm >90 (>60 ml/min/1.73 sqM) 08/11/24 07:48 Est GFR (CKD-EPI)NonAf 86 (>60 ml/min/1.73 sqM) 08/11/24 07:48 Glucose 94 mg/dL (74-99) 08/11/24 07:48 Calcium 9.9 mg/dL (8.4-10.2) 08/11/24 07:48 Total Bilirubin 1.1 mg/dL (0.2-1.3) 08/11/24 07:48 Conjugated Bilirubin 0.0 mg/dL (0.0-0.3) 08/11/24 07:48 Unconjugated Bilirubin 1.0 mg/dL (0.0-1.1) 08/11/24 07:48 Delta Bilirubin 0.1 mg/dL (0.0-0.2) 08/11/24 07:48 AST 19 U/L (17-59) 08/11/24 07:48 ALT 19 U/L (4-49) 08/11/24 07:48 Alkaline Phosphatase 95 U/L (38-126) 08/11/24 07:48 Total Protein 7.9 g/dL (6.3-8.2) 08/11/24 07:48 Albumin 4.7 g/dL (3.5-5.0) 08/11/24 07:48 TSH 0.228 mIU/L (0.465-4.680) L 08/11/24 07:48 Free T4 0.95 ng/dL (0.78-2.19) 08/11/24 07:48 Total T3 96.2 ng/dL (86.0-192.0) 08/11/24 07:48 Urine Color Yellow 08/10/24 17:09 Urine Appearance Clear (Clear) 08/10/24 17:09 Urine pH 6.0 (5.0-8.0) 08/10/24 17:09 Ur Specific [place] 1.024 (1.001-1.035) 08/10/24 17:09 Urine Protein Negative (Negative) 08/10/24 17:09 Urine Glucose (UA) Negative (Negative) 08/10/24 17:09 Urine Ketones Negative (Negative) 08/10/24 17:09 Urine Blood Negative (Negative) 08/10/24 17:09 Urine Nitrite Negative (Negative) 08/10/24 17:09 Urine Bilirubin Negative (Negative) 08/10/24 17:09 Urine Urobilinogen 2.0 mg/dL (<2.0) 08/10/24 17:09 Ur Leukocyte Esterase Trace (Negative) H 08/10/24 17:09 Urine RBC 1 /hpf (0-5) 08/10/24 17:09 Urine WBC 2 /hpf (0-5) 08/10/24 17:09 Ur Squamous Epith Cells <1 /hpf (0-4) 08/10/24 17:09 Urine Mucus Occasional /hpf (None) H 08/10/24 17:09 Urine Opiates Screen Not Detected (NotDetected) 08/10/24 17:09 Ur Oxycodone Screen Not Detected (NotDetected) 08/10/24 17:09 Urine Methadone Screen Not Detected (NotDetected) 08/10/24 17:09 Ur Barbiturates Screen Not Detected (NotDetected) 08/10/24 17:09 U Tricyclic Antidepress Not Detected (NotDetected) 08/10/24 17:09 Ur Phencyclidine Scrn Not Detected (NotDetected) 08/10/24 17:09 Ur Amphetamines Screen Not Detected (NotDetected) 08/10/24 17:09 U Methamphetamines Scrn Not Detected (NotDetected) 08/10/24 17:09 U Benzodiazepines Scrn Not Detected (NotDetected) 08/10/24 17:09 Urine Cocaine Screen Not Detected (NotDetected) 08/10/24 17:09 U Marijuana (THC) Screen Detected (NotDetected) H 08/10/24 17:09 SARS-CoV-2 (PCR) Not Detected (Not Detectd) 08/10/24 17:09 Vital Signs Temp 97.3 F L 08/18/24 08:00 Pulse 104 H 08/18/24 08:00 Resp 18 08/16/24 08:17 BP 99/67 12/11/24 08:00 Pulse Ox 96 08/18/24 08:00 FiO2 Patient Condition at Discharge: Stable Plan - Discharge Summary New Discharge Prescriptions: New Divalproex ER [Depakote ER] 500 mg PO HS 30 Days #30 tab Nicotine 14Mg/24Hr Patch [Habitrol] 1 patch TRANSDERM DAILY 14 Days #14 patch Paliperidone [Invega] 3 mg PO BID 16 Days #32 tab Paliperidone IM [Invega Sustenna] 234 mg IM QMONTHLY #1 each Ibuprofen [Motrin] 600 mg PO Q6HR PRN tab PRN Reason: Moderate Pain (Scale 4 To 6) traZODone HCL 150 mg PO HS 30 Days #30 tablet Sertraline [Zoloft] 100 mg PO DAILY 30 Days #30 tab Continue Melatonin 10 mg PO HS 30 Days #30 ml metFORMIN HCL [Glucophage] 500 mg PO W/BRKFST 30 Days #30 tab Folic Acid 1 mg PO DAILY 30 Days #30 tab Thiamine [Vitamin B-1] 100 mg PO DAILY 30 Days #30 tab Changed Multivitamins, Thera [Multivitamin (formulary)] 1 tab PO DAILY 30 Days #30 tab Discontinued traZODone HCL 200 mg PO HS 30 Days #60 tablet Paliperidone Palmitate [Invega Sustenna] 117 mg IM Q28D Sertraline [Zoloft] 50 mg PO DAILY 30 Days #30 tab Nicotine 14Mg/24Hr Patch [Habitrol] 1 patch TRANSDERM DAILY 14 Days #14 patch Discharge Medication List metFORMIN HCL [Glucophage] 500 mg PO W/BRKFST 30 Days #30 tab 06/09/24 [Rx] Divalproex ER [Depakote ER] 500 mg PO HS 30 Days #30 tab 08/18/24 [Rx] Folic Acid 1 mg PO DAILY 30 Days #30 tab 08/18/24 [Rx] Ibuprofen [Motrin] 600 mg PO Q6HR PRN tab 08/18/24 [Rx] Melatonin 10 mg PO HS 30 Days #30 ml 08/18/24 [Rx] Multivitamins, Thera [Multivitamin (formulary)] 1 tab PO DAILY 30 Days #30 tab 08/18/24 [Rx] Nicotine 14Mg/24Hr Patch [Habitrol] 1 patch TRANSDERM DAILY 14 Days #14 patch 08/18/24 [Rx] Paliperidone IM [Invega Sustenna] 234 mg IM QMONTHLY #1 each 08/18/24 [Rx] Paliperidone [Invega] 3 mg PO BID 16 Days #32 tab 08/18/24 [Rx] Sertraline [Zoloft] 100 mg PO DAILY 30 Days #30 tab 08/18/24 [Rx] Thiamine [Vitamin B-1] 100 mg PO DAILY 30 Days #30 tab 08/18/24 [Rx] traZODone HCL 150 mg PO HS 30 Days #30 tablet 08/18/24 [Rx] Follow up Appointment(s)/Referral(s): [facility] [Outside] - 08/23/24 1:00 pm (08/23 at 1pm with Bernadette Meek at the [facility] office 08/27 at 12:30pm with Fatuma Dickson NP) [facility] [NON-STAFF] - 1 Week Patient Instructions/Handouts: How to Stop Smoking (DC), Schizoaffective Disorder (DC) Activity/Diet/Wound Care/Special Instructions: Avoid the use of street drugs and alcohol. Take all medications as prescribed. When you are in need of refills on your medications, please contact your medical provider and/or outpatient psychiatrist/provider to have this done. Please go to your scheduled outpatient appointment for aftercare treatment. If symptoms return or become worse, call the crisis line at and/or go to the nearest emergency room for evaluation. National Suicide Hotline 988 Discharge Disposition: HOME SELF-CARE
== END 2024-08-18 14:15 | disposition home or self-care (01) | DRG 750 ==
LOC: EEVIPCON 15:10 → EC 15:10 → 3MHU 18:23
PROVIDERS: ADMIT Psychiatry & Neurology Psychiatry; ATTEND Psychiatry & Neurology Psychiatry
DX: F25.0 Schizoaffective disorder, bipolar type (principal); F17.210 Nicotine dependence, cigarettes, uncomplicated; F17.290 Nicotine dependence, other tobacco product, uncomplicated; F11.10 Opioid abuse, uncomplicated; F12.10 Cannabis abuse, uncomplicated; F14.10 Cocaine abuse, uncomplicated; F41.9 Anxiety disorder, unspecified; G47.00 Insomnia, unspecified; J06.9 Acute upper respiratory infection, unspecified; D72.829 Elevated white blood cell count, unspecified; R45.851 Suicidal ideations; F10.10 Alcohol abuse, uncomplicated; Z79.84 Long term (current) use of oral hypoglycemic drugs; Z79.899 Other long term (current) drug therapy; F90.9 Attention-deficit hyperactivity disorder, unspecified type; R45.850 Homicidal ideations; M79.643 Pain in unspecified hand; Z65.3 Problems related to other legal circumstances; Z91.51 Personal history of suicidal behavior; Z28.310 Unvaccinated for COVID-19; Z28.21 Immunization not carried out because of patient refusal; Z71.51 Drug abuse counseling and surveillance of drug abuser; Z71.41 Alcohol abuse counseling and surveillance of alcoholic; Z11.52 Encounter for screening for COVID-19
CPT/HCPCS: 80053; 80306; 81001; 82075; 82248; 84439; 84443; 84480; 85025; 85027; 87635; 99285

== ENCOUNTER 2025-03-19 12:12 | Emergency (ER) | payer OTHER ==
[2025-03-19 12:16] VITALS: TEMP 97.9
--- NOTE | 2025-03-19 12:35 | ED ---
General Adult HPI - General Chief complaint: Seizure Stated complaint: Seizures Time Seen by Provider: 03/19/25 12:18 Source: patient, RN notes reviewed, old records reviewed Mode of arrival: ambulatory Limitations: no limitations - History of Present Illness Initial comments: 19-year-old male presents for evaluation of several passing out spells versus seizure activity. These have been witnessed by family members. He states that when he stands quickly he feels lightheaded and has passed out several times. He was concerned that this could be related to seizure. Patient states that he did wake relatively quickly and there was no sustained postictal phase or confusion. No serious injury. No preceding symptoms other than the lightheadedness with standing. He denies nausea vomiting or diarrhea. Denies fever. Denies chest pain or shortness of breath. - Related Data Previous Rx's Medication Instructions Recorded metFORMIN HCL [Glucophage] 500 mg PO W/BRKFST 30 Days #30 tab 06/09/24 Divalproex ER [Depakote ER] 500 mg PO HS 30 Days #30 tab 08/18/24 Folic Acid 1 mg PO DAILY 30 Days #30 tab 08/18/24 Ibuprofen [Motrin] 600 mg PO Q6HR PRN tab 08/18/24 Melatonin 10 mg PO HS 30 Days #30 ml 08/18/24 Multivitamins, Thera [Multivitamin 1 tab PO DAILY 30 Days #30 tab 08/18/24 (formulary)] Nicotine 14Mg/24Hr Patch [Habitrol] 1 patch TRANSDERM DAILY 14 Days 08/18/24 #14 patch Paliperidone IM [Invega Sustenna] 234 mg IM QMONTHLY #1 each 08/18/24 Paliperidone [Invega] 3 mg PO BID 16 Days #32 tab 08/18/24 Sertraline [Zoloft] 100 mg PO DAILY 30 Days #30 tab 08/18/24 Thiamine [Vitamin B-1] 100 mg PO DAILY 30 Days #30 tab 08/18/24 traZODone HCL 150 mg PO HS 30 Days #30 tablet 08/18/24 Allergies Allergy/AdvReac Type Severity Reaction Status Date / Time No Known Allergies Allergy Verified 03/19/25 12:16 Review of Systems ROS Statement: Those systems with pertinent positive or pertinent negative responses have been documented in the HPI. ROS Other: All systems not noted in ROS Statement are negative. Past Medical History Past Medical History: No Reported History History of Any Multi-Drug Resistant Organisms: None Reported Past Surgical History: No Surgical Hx Reported Past Anesthesia/Blood Transfusion Reactions: No Reported Reaction Past Psychological History: ADD/ADHD, Bipolar, Depression, Schizoaffective Diso rder Smoking Status: Current every day smoker, Vaper Past Alcohol Use History: Daily, Heavy Past Drug Use History: Cocaine, Heroin, Marijuana, Methamphetamine, Opiates, Prescription Drug Abuse - Past Family History Father Family Medical History: Hypertension General Exam Limitations: no limitations General appearance: alert, in no apparent distress Head exam: Present: atraumatic, normocephalic Eye exam: Present: normal appearance, PERRL Neck exam: Present: normal inspection. Absent: tenderness, meningismus Respiratory exam: Present: normal lung sounds bilaterally. Absent: respiratory distress, wheezes Cardiovascular Exam: Present: regular rate, normal rhythm GI/Abdominal exam: Present: soft. Absent: distended, tenderness, guarding Extremities exam: Present: normal inspection, normal capillary refill Neurological exam: Present: alert, oriented X3, CN II-XII intact. Absent: motor sensory deficit Psychiatric exam: Present: normal affect, normal mood Skin exam: Present: warm, dry, intact. Absent: cyanosis, diaphoretic Course Vital Signs 03/19/25 03/19/25 12:13 13:16 Temperature 97.9 F Pulse Rate 79 39 L Respiratory 16 17 Rate Blood Pressure 95/61 93/58 O2 Sat by Pulse 95 100 Oximetry Medical Decision Making - Medical Decision Making Was pt. sent in by a medical professional or institution (, PA, DIALS SUPERVISOR, urgent care, hospital, or [place] [facility] [place] facility...) When possible be specific @ -No Did you speak to anyone other than the patient for history (EMS, parent, family, police, friend...)? What history was obtained from this source @ -No Did you review nursing and triage notes (agree or disagree)? Why? @ -I reviewed and agree with nursing and triage notes Were old charts reviewed (outside hosp., previous admission, EMS record, old EKG, old radiological studies, urgent care reports/EKG's, [place] health [facility] facility records)? Report findings @ -No old charts were reviewed Differential Syncope: Valvular disease, hypertrophic cardiomyopathy, pulmonary embolism, tamponade, tachycardia, bradycardia, MA, hypovolemia, hemorrhage, dissection, anemia, intracranial hemorrhage, seizure, hypoglycemia, carbon monoxide poisoning, this is not meant to be an all-inclusive list. EKG interpreted by me (3pts min.). @Sinus rhythm rate of 60, KY interval 144, QRS duration 105, QTc 382 Repeat EKG at 1352, sinus bradycardia rate of 41, KY interval 148, QRS duration 108, QTc 373, J-point elevation. X-rays interpreted by me (1pt min.). @ -[Chest x-ray is clear, normal cardiac silhouette, no acute findings CT interpreted by me (1pt min.). @ -CT brain negative for intracranial hemorrhage or mass effect, no acute findings. U/S interpreted by me (1pt. min.). @ -[None done What testing was considered but not performed or refused? (CT, X-rays, U/S, labs)? Why? @ -None What meds were considered but not given or refused? Why? @ -None Did you discuss the management of the patient with other professionals (professionals i.e. , PA, DIALS SUPERVISOR, lab, RT, psych nurse, manager social media, press catcher, teacher, fourth officer, case therapist)? Give summary @ -No Was smoking cessation discussed for >3mins.? @ -No Was critical care preformed (if so, how long)? @ -No Were there social determinants of health that impacted care today? How? (Home lessness, low income, unemployed, alcoholism, drug addiction, transportation, low edu. Level, literacy, decrease access to med. care, long term, rehab)? @ -No Was there de-escalation of care discussed even if they declined (Discuss DNR or withdrawal of care, Hospice)? DNR status @ -No What co-morbidities impacted this encounter? (DM, HTN, Smoking, COPD, CAD, Cancer, CVA, ARF, Chemo, Hep., AIDS, mental health diagnosis, sleep apnea, morbid obesity)? @ -None Was patient admitted / discharged? Hospital course, mention meds given and route, prescriptions, significant lab abnormalities, going to OR and other pertinent info. @ -19-year-old male with syncope versus seizure. Patient does endorse some lightheadedness prior to each episode and there is no postictal phase suggestive more of syncope rather than seizure. Patient is bradycardic with stable blood pressure. He has normal CBC, normal CMP, I did perform chest x-ray and head CT which were both unremarkable. Patient remains asymptomatic and well-appearing while in the emergency department. He is instructed to drink plenty of fluids, follow closely with his primary care provider. He is instructed not to drive or do anything dangerous if he were to have another episode. Undiagnosed new problem with uncertain prognosis? @ -No Drug Therapy requiring intensive monitoring for toxicity (Heparin, Nitro, Insulin, Cardizem)? @ -No Were any procedures done? @ -No Diagnosis/symptom? @ -Syncope versus seizure Acute, or Chronic, or Acute on Chronic? @ -Acute Uncomplicated (without systemic symptoms) or Complicated (systemic symptoms)? @ -Default Side effects of treatment? @ -No Exacerbation, Progression, or Severe Exacerbation? @ -No Poses a threat to life or bodily function? How? (Chest pain, USA, MA, pneumonia, PE, COPD, DKA, ARF, appy, cholecystitis, CVA, Diverticulitis, Homicidal, Suicidal, threat to staff... and all critical care pts) @ -Low risk at this time - Lab Data Result diagrams: 03/19/25 12:26 03/19/25 12:26 Lab Results 03/19/25 03/19/25 03/19/25 Range/Units 12:26 12:26 12:26 WBC 8.93 (4.50-10.00) 10*3/uL RBC 4.76 (4.40-5.60) 10*6/uL Hgb 14.4 (13.0-17.0) g/dL Hct 38.5 L (39.6-50.0) % MCV 80.9 (80.0-97.0) fL MCH 30.3 (27.0-32.0) pg MCHC 37.4 H (32.0-37.0) g/dL Plt Count 237 (140-440) 10*3/uL MPV 9.7 (9.5-12.2) fL Immature Gran % (Auto) 0.2 % Neutrophils % 66.5 % Lymphocytes % 24.7 % Monocytes % 7.6 % Eosinophils % 0.9 % Basophils % 0.1 % Immature Gran # 0.02 (0.00-0.04) 10*3/uL Neutrophils # 5.93 (1.80-7.70) 10*3/uL Lymphocytes # 2.21 (0.90-5.00) 10*3/uL Monocytes # 0.68 (0.20-1.00) 10*3/uL Eosinophils # 0.08 (0.04-0.35) 10*3/uL Basophils # 0.01 (0.00-0.10) 10*3/uL PT 13.3 H (10.0-12.5) sec INR 1.2 H (<1.2) APTT 28.6 (22.0-30.0) sec Sodium 139 (137-145) mmol/L Potassium 4.3 (3.5-5.1) mmol/L Chloride 105 (98-107) mmol/L Carbon Dioxide 23 (22-30) mmol/L Anion Gap 11 mmol/L BUN 13 (9-20) mg/dL Creatinine 0.80 (0.66-1.25) mg/dL Est GFR (CKD-EPI)AfAm >90 (>60 ml/min/1.73 sqM) Est GFR (CKD-EPI)NonAf >90 (>60 ml/min/1.73 sqM) Glucose 87 (74-99) mg/dL Calcium 10.0 (8.4-10.2) mg/dL Magnesium 1.8 (1.6-2.3) mg/dL Total Bilirubin 0.6 (0.2-1.3) mg/dL AST 18 (17-59) U/L ALT 14 (4-49) U/L Alkaline Phosphatase 57 (38-126) U/L Troponin I (0.000-0.034) ng/mL Total Protein 7.1 (6.3-8.2) g/dL Albumin 4.1 (3.5-5.0) g/dL Urine Color Urine Appearance (Clear) Urine pH (5.0-8.0) Ur Specific Bly (1.001-1.035) Urine Protein (Negative) Urine Glucose (UA) (Negative) Urine Ketones (Negative) Urine Blood (Negative) Urine Nitrite (Negative) Urine Bilirubin (Negative) Urine Urobilinogen (<2.0) mg/dL Ur Leukocyte Esterase (Negative) Urine RBC (0-5) /hpf Urine WBC (0-5) /hpf Ur Squamous Epith Cells (0-4) /hpf Urine Mucus (None) /hpf Urine Opiates Screen (NotDetected) Ur Oxycodone Screen (NotDetected) Urine Methadone Screen (NotDetected) Ur Barbiturates Screen (NotDetected) U Tricyclic Antidepress (NotDetected) Ur Phencyclidine Scrn (NotDetected) Ur Amphetamines Screen (NotDetected) U Methamphetamines Scrn (NotDetected) U Benzodiazepines Scrn (NotDetected) Urine Cocaine Screen (NotDetected) U Marijuana (THC) Screen (NotDetected) 03/19/25 03/19/25 03/19/25 Range/Units 12:26 13:39 13:39 WBC (4.50-10.00) 10*3/uL RBC (4.40-5.60) 10*6/uL Hgb (13.0-17.0) g/dL Hct (39.6-50.0) % MCV (80.0-97.0) fL MCH (27.0-32.0) pg MCHC (32.0-37.0) g/dL Plt Count (140-440) 10*3/uL MPV (9.5-12.2) fL Immature Gran % (Auto) % Neutrophils % % Lymphocytes % % Monocytes % % Eosinophils % % Basophils % % Immature Gran # (0.00-0.04) 10*3/uL Neutrophils # (1.80-7.70) 10*3/uL Lymphocytes # (0.90-5.00) 10*3/uL Monocytes # (0.20-1.00) 10*3/uL Eosinophils # (0.04-0.35) 10*3/uL Basophils # (0.00-0.10) 10*3/uL PT (10.0-12.5) sec INR (<1.2) APTT (22.0-30.0) sec Sodium (137-145) mmol/L Potassium (3.5-5.1) mmol/L Chloride (98-107) mmol/L Carbon Dioxide (22-30) mmol/L Anion Gap mmol/L BUN (9-20) mg/dL Creatinine (0.66-1.25) mg/dL Est GFR (CKD-EPI)AfAm (>60 ml/min/1.73 sqM) Est GFR (CKD-EPI)NonAf (>60 ml/min/1.73 sqM) Glucose (74-99) mg/dL Calcium (8.4-10.2) mg/dL Magnesium (1.6-2.3) mg/dL Total Bilirubin (0.2-1.3) mg/dL AST (17-59) U/L ALT (4-49) U/L Alkaline Phosphatase (38-126) U/L Troponin I 0.017 (0.000-0.034) ng/mL Total Protein (6.3-8.2) g/dL Albumin (3.5-5.0) g/dL Urine Color Yellow Urine Appearance Cloudy (Clear) Urine pH 7.0 (5.0-8.0) Ur Specific Bly 1.024 (1.001-1.035) Urine Protein Negative (Negative) Urine Glucose (UA) Negative (Negative) Urine Ketones Negative (Negative) Urine Blood Negative (Negative) Urine Nitrite Negative (Negative) Urine Bilirubin Negative (Negative) Urine Urobilinogen <2.0 (<2.0) mg/dL Ur Leukocyte Esterase Negative (Negative) Urine RBC 1 (0-5) /hpf Urine WBC 1 (0-5) /hpf Ur Squamous Epith Cells <1 (0-4) /hpf Urine Mucus Rare H (None) /hpf Urine Opiates Screen Not Detected (NotDetected) Ur Oxycodone Screen Not Detected (NotDetected) Urine Methadone Screen Not Detected (NotDetected) Ur Barbiturates Screen Not Detected (NotDetected) U Tricyclic Antidepress Not Detected (NotDetected) Ur Phencyclidine Scrn Not Detected (NotDetected) Ur Amphetamines Screen Not Detected (NotDetected) U Methamphetamines Scrn Not Detected (NotDetected) U Benzodiazepines Scrn Detected H (NotDetected) Urine Cocaine Screen Not Detected (NotDetected) U Marijuana (THC) Screen Detected H (NotDetected) 03/19/25 Range/Units 14:50 WBC (4.50-10.00) 10*3/uL RBC (4.40-5.60) 10*6/uL Hgb (13.0-17.0) g/dL Hct (39.6-50.0) % MCV (80.0-97.0) fL MCH (27.0-32.0) pg MCHC (32.0-37.0) g/dL Plt Count (140-440) 10*3/uL MPV (9.5-12.2) fL Immature Gran % (Auto) % Neutrophils % % Lymphocytes % % Monocytes % % Eosinophils % % Basophils % % Immature Gran # (0.00-0.04) 10*3/uL Neutrophils # (1.80-7.70) 10*3/uL Lymphocytes # (0.90-5.00) 10*3/uL Monocytes # (0.20-1.00) 10*3/uL Eosinophils # (0.04-0.35) 10*3/uL Basophils # (0.00-0.10) 10*3/uL PT (10.0-12.5) sec INR (<1.2) APTT (22.0-30.0) sec Sodium (137-145) mmol/L Potassium (3.5-5.1) mmol/L Chloride (98-107) mmol/L Carbon Dioxide (22-30) mmol/L Anion Gap mmol/L BUN (9-20) mg/dL Creatinine (0.66-1.25) mg/dL Est GFR (CKD-EPI)AfAm (>60 ml/min/1.73 sqM) Est GFR (CKD-EPI)NonAf (>60 ml/min/1.73 sqM) Glucose (74-99) mg/dL Calcium (8.4-10.2) mg/dL Magnesium (1.6-2.3) mg/dL Total Bilirubin (0.2-1.3) mg/dL AST (17-59) U/L ALT (4-49) U/L Alkaline Phosphatase (38-126) U/L Troponin I 0.017 (0.000-0.034) ng/mL Total Protein (6.3-8.2) g/dL Albumin (3.5-5.0) g/dL Urine Color Urine Appearance (Clear) Urine pH (5.0-8.0) Ur Specific Bly (1.001-1.035) Urine Protein (Negative) Urine Glucose (UA) (Negative) Urine Ketones (Negative) Urine Blood (Negative) Urine Nitrite (Negative) Urine Bilirubin (Negative) Urine Urobilinogen (<2.0) mg/dL Ur Leukocyte Esterase (Negative) Urine RBC (0-5) /hpf Urine WBC (0-5) /hpf Ur Squamous Epith Cells (0-4) /hpf Urine Mucus (None) /hpf Urine Opiates Screen (NotDetected) Ur Oxycodone Screen (NotDetected) Urine Methadone Screen (NotDetected) Ur Barbiturates Screen (NotDetected) U Tricyclic Antidepress (NotDetected) Ur Phencyclidine Scrn (NotDetected) Ur Amphetamines Screen (NotDetected) U Methamphetamines Scrn (NotDetected) U Benzodiazepines Scrn (NotDetected) Urine Cocaine Screen (NotDetected) U Marijuana (THC) Screen (NotDetected) Disposition Clinical Impression: Syncope, Seizure Disposition: HOME SELF-CARE Condition: Good Instructions (If sedation given, give patient instructions): New-Onset Seizure in Adults (ED), Syncope (ED) Is patient prescribed a controlled substance at d/c from ED?: No Referrals: None,Stated [Primary Care Provider] - 1-2 days [facility] [NON-STAFF] - 1-2 days Emigdio Irby DO [STAFF PHYSICIAN] - 1-2 days Time of Disposition: 15:37
[2025-03-19] MEDS: SODIUM CHLORIDE 0.9% 1,000 ML IV STA (12:52)
[2025-03-19 12:54] LABS: Basophils # (A) 0.01 10*3/uL (0.00-0.10); Basophils % (A) 0.1 %; Eosinophils # (A) 0.08 10*3/uL (0.04-0.35); Eosinophils % (A) 0.9 %; HCT 38.5 % (39.6-50.0); HGB 14.4 g/dL (13.0-17.0); Lymphocytes # (A) 2.21 10*3/uL (0.90-5.00); Lymphocytes % (A) 24.7 %; MCH 30.3 pg (27.0-32.0); MCHC 37.4 g/dL (32.0-37.0); MCV 80.9 fL (80.0-97.0); Monocytes # (A) 0.68 10*3/uL (0.20-1.00); Monocytes % (A) 7.6 %; Neutrophils # (A) 5.93 10*3/uL (1.80-7.70); Neutrophils % (A) 66.5 %; Platelet Count 237 10*3/uL (140-440); RBC 4.76 10*6/uL (4.40-5.60); RDW 12.7 % (11.5-14.5); WBC 8.93 10*3/uL (4.50-10.00)
[2025-03-19 13:03] LABS: INR 1.2 (<1.2); Partial Thromboplastin Time 28.6 sec (22.0-30.0); Prothrombin Time 13.3 sec (10.0-12.5)
[2025-03-19 13:09] LABS: ALT 14 U/L (4-49); AST 18 U/L (17-59); African American GFR (CKD) >90 (>60 ml/min/1.73 sqM); Albumin 4.1 g/dL (3.5-5.0); Alkaline Phosphatase 57 U/L (38-126); Anion Gap 11 mmol/L; Blood Urea Nitrogen 13 mg/dL (9-20); Calcium 10.0 mg/dL (8.4-10.2); Carbon Dioxide 23 mmol/L (22-30); Chloride 105 mmol/L (98-107); Glucose 87 mg/dL (74-99); Magnesium 1.8 mg/dL (1.6-2.3); Non-African American GFR(CKD) >90 (>60 ml/min/1.73 sqM); Potassium 4.3 mmol/L (3.5-5.1); Sodium 139 mmol/L (137-145); Total Protein 7.1 g/dL (6.3-8.2)
--- NOTE | 2025-03-19 13:33 | XR ---
Chest, 2 view. CLINICAL INDICATION: Male, 19 years old with history of syncope COMPARISON: None TECHNIQUE: PA and lateral views the chest are obtained. FINDINGS: The lungs are clear and there is no consolidative or interstitial opacity. There is no pleural effusion or pneumothorax. The heart, pulmonary vasculature, mediastinum and linda appear normal. The osseous structures are intact. IMPRESSION: No significant abnormality seen. No acute cardiopulmonary disease. [facility], Workstation: EN, 03/19/2025 1:31 PM
[2025-03-19 13:48] VITALS: BP 93/58; PULSE 39; RESP 17
[2025-03-19 13:56] LABS: Bilirubin,Urine Negative (Negative); Blood,Urine Negative (Negative); Color,Urine Yellow; Glucose,Urine (UA) Negative (Negative); Ketones,Urine Negative (Negative); Leukocyte Esterase,Urine Negative (Negative); Mucus,Urine Rare /hpf; Nitrite,Urine Negative (Negative); PH, Urine 7.0 (5.0-8.0); Protein,Urine Negative (Negative); RBC,Urine 1 /hpf (0-5); Specific Gravity,Urine 1.024 (1.001-1.035); Squamous Epithelial Cell,Urine <1 /hpf (0-4); Urobilinogen,Urine <2.0 mg/dL (<2.0); WBC,Urine 1 /hpf (0-5)
[2025-03-19 14:08] LABS: Barbiturate Screen,Urine Not Detected (NotDetected); Benzodiazepines Screen,Urine Detected (NotDetected); Opiate Screen,Urine Not Detected (NotDetected); Oxycodone Screen, Urine Not Detected (NotDetected); Phencyclidine Screen,Urine Not Detected (NotDetected); Tricyclic Antidepressant,Urine Not Detected (NotDetected); Urn Cannabinoid Scrn Detected (NotDetected)
--- NOTE | 2025-03-19 14:28 | CT ---
EXAMINATION TYPE: CT brain wo con CT DLP: 1141.4 mGycm, Automated exposure control for dose reduction was used. DATE OF EXAM: 03/19/2025 2:17 PM COMPARISON: None. CLINICAL INDICATION:Male, 19 years old with history of Possible seizure, Possible seizure TECHNIQUE: Brain: Multiple axial CT images of the brain were obtained without IV contrast. . Coronal and sagitta l reformats reviewed. FINDINGS: Brain: Extra-axial spaces: No abnormal extra-axial fluid collections. Ventricular system: Within normal limits Cerebral parenchyma: No acute intraparenchymal hemorrhage or mass effect. The lobo-white junction is well differentiated. Cerebellum: Unremarkable. Mass effect: No evidence of midline shift. Intracranial vasculature: unremarkable Soft tissues: Normal. Calvarium/osseous structures: No depressed skull fracture. Paranasal sinuses and mastoid air cells: Minimal mucosal thickening of the right maxillary sinus. Lef t inferior maxillary sinus 2.1 cm mucous retention cyst. Remaining paranasal sinuses are clear. The m astoid air cells are clear. Visualized orbits: Orbital contents are intact. IMPRESSION: No acute intracranial process. [facility], , 03/19/2025 2:26 PM
== END 2025-03-19 16:03 | disposition home or self-care (01) ==
LOC: EC 12:12
DX: R56.9 Unspecified convulsions (principal); R55 Syncope and collapse; F17.290 Nicotine dependence, other tobacco product, uncomplicated
CPT/HCPCS: 36415; 70450; 71046; 80053; 80306; 81001; 83735; 84484; 85025; 85610; 85730; 93005; 96360; 96361; 99284